=== PATIENT | female | born 1940 | race Caucasian/White ===

== ENCOUNTER 2018-03-17 17:18 | Emergency (ER) | payer OTHER ==
[2018-03-17 18:41] LABS: Absolute Lymphocytes (CBC) 2.1 K/uL (0.7-4.9); Absolute Monocytes 0.9 K/uL (0.1-1.3); Basophils % 0.8 % (0-1.3); Eosinophils % 2.4 % (0-4.4); Hematocrit 36.9 % (36.0-45.0); Lymphocytes % 20.7 % (15.3-44.8); MCH 29.3 pg (27.0-35.0); MCV 83.8 fL (80-100); MPV 8.4 fL (7.6-11.3); Monocytes % 8.3 % (3.3-12.3)
[2018-03-17] MEDS ORDERED: NA CHLORIDE 0.9% 1,000 ML ONE (18:45)
[2018-03-17 18:59] LABS: Albumin 4.2 g/dL (3.4-5.0); Bilirubin Direct 0.2 mg/dL (0-0.2); Bilirubin Total 0.4 mg/dL (0.2-1.0); Potassium 3.1 mmol/L (3.5-5.1); Protein, Total 7.7 g/dL (6.4-8.2)
--- NOTE | 2018-03-17 19:27 | RAD REPORT ---
EXAM DESCRIPTION: CTAbdomen Pelvis W Contrast - 03/17/2018 7:20 pm CLINICAL HISTORY: Abdominal pain. diarrhea COMPARISON: No comparisons TECHNIQUE: Biphasic CT imaging of the abdomen and pelvis was performed with 100 ml non-ionic IV cont rast. All CT scans are performed using dose optimization technique as appropriate and may include automated exposure control or mA/KV adjustment according to patient size. FINDINGS: The lung bases are clear. Diffuse fatty liver is present. No focal liver lesion intrahepatic biliary dilatation. The spleen, pa ncreas, adrenal glands and kidneys show no acute process. Small benign renal cysts are present. No bowel obstruction, free air, free fluid or abscess. Focal ventral hernia is present containing sma ll bowel loops and fat without evidence of obstruction. Prominent sigmoid diverticulosis coli is pres ent without diverticulitis. Evidence of previous right hemicolectomy with anastomotic site in the mid transverse colon region. No evidence of significant lymphadenopathy. No suspicious bony findings. IMPRESSION: No acute intra-abdominal or pelvic finding. Fatty liver. Moderate focal ventral hernia without obstruction or incarceration.
[2018-03-17] MEDS ORDERED: POTASSIUM 25 MEQ EFFERV TAB ONE (20:27)
[2018-03-17] MEDS ORDERED: NA CHLORIDE 0.9% 500 ML ONE (20:27)
--- NOTE | 2018-03-17 21:21 | EDPHYS ---
Physician Documentation [facility] Name: Yessenia Ray Age: 77 yrs Sex: Female : 1940 Arrival Date: 03/17/2018 Time: 17:19 Bed 13 Private MD: Mik [facility] ED Physician Jeffery Crow HPI: 03/17 18:28 This 77 yrs old Female presents to ER via Ambulatory with complaints of snw diarrhea. 18:28 The patient presents to the emergency department with diarrhea, 20+ episodes today, pt snw states she took two doses of immodium and diarrhea has slowed to about every twenty minutes. Denies fever, denies N/V, denies abd pain. Onset: The symptoms/episode began/occurred 2 month(s) ago, and became worse today, and became persistent. Possible causes: unknown. Associated signs and symptoms: Pertinent positives: diarrhea. Severity of symptoms: At their worst the symptoms were severe. The patient has experienced a previous episode. The patient has not recently seen a physician, sees Dr. Alejandro and Dr. Houser. 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 Historical: - Allergies: 17:35 Codeine; aj1 - Home Meds: 17:35 Norvasc Oral [Active]; Zocor Oral [Active]; Clonidine Oral [Active]; Micardis Oral aj1 [Active]; Hydrochlorothiazide Oral [Active]; - PMHx: 17:35 Hypertension; Hyperlipidemia; colon cancer- currently in remission; peritonitis; aj1 uterine cancer; - PSHx: 17:35 colectomy; Hysterectomy; aj1 - Immunization history:: Flu vaccine is up to date. - Social history:: Smoking status: Patient/guardian denies using tobacco. - Ebola Screening: : Patient denies travel to an Ebola-affected area in the 21 days before illness onset. ROS: 18:25 Constitutional: Negative for fever, chills, and weight loss, Eyes: Negative for injury, snw pain, redness, and discharge, ENT: Negative for injury, pain, and discharge, Neck: Negative for injury, pain, and swelling, Cardiovascular: Negative for chest pain, palpitations, and edema, Respiratory: Negative for shortness of breath, cough, wheezing, and pleuritic chest pain, Back: Negative for injury and pain, : Negative for injury, bleeding, discharge, and swelling, MS/Extremity: Negative for injury and deformity, Skin: Negative for injury, rash, and discoloration, Neuro: Negative for headache, weakness, numbness, tingling, and seizure. 18:25 Abdomen/GI: Positive for diarrhea, Negative for abdominal pain, nausea and vomiting. Exam: 18:25 Constitutional: This is a well developed, well nourished patient who is awake, alert, snw and in no acute distress. Head/Face: Normocephalic, atraumatic. Eyes: Pupils equal round and reactive to light, extra-ocular motions intact. Lids and lashes normal. Conjunctiva and sclera are non-icteric and not injected. Cornea within normal limits. Periorbital areas with no swelling, redness, or edema. ENT: Nares patent. No nasal discharge, no septal abnormalities noted. Tympanic membranes are normal and external auditory canals are clear. Oropharynx with no redness, swelling, or masses, exudates, or evidence of obstruction, uvula midline. Mucous membranes moist. Neck: Trachea midline, no thyromegaly or masses palpated, and no cervical lymphadenopathy. Supple, full range of motion without nuchal rigidity, or vertebral point tenderness. No Meningismus. Chest/axilla: Normal chest wall appearance and motion. Nontender with no deformity. No lesions are appreciated. Cardiovascular: Regular rate and rhythm with a normal S1 and S2. No gallops, murmurs, or rubs. Normal PMI, no JVD. No pulse deficits. Respiratory: Lungs have equal breath sounds bilaterally, clear to auscultation and percussion. No rales, rhonchi or wheezes noted. No increased work of breathing, no retractions or nasal flaring. Back: No spinal tenderness. No costovertebral tenderness. Full range of motion. Skin: Warm, dry with normal turgor. Normal color with no rashes, no lesions, and no evidence of cellulitis. MS/ Extremity: Pulses equal, no cyanosis. Neurovascular intact. Full, normal range of motion. Neuro: Awake and alert, GCS 15, oriented to person, place, time, and situation. Cranial nerves II-XII grossly intact. Motor strength 5/5 in all extremities. Sensory grossly intact. Cerebellar exam normal. Normal gait. Psych: Awake, alert, with orientation to person, place and time. Behavior, mood, and affect are within normal limits. 18:25 Abdomen/GI: Inspection: distension, Bowel sounds: normal, Palpation: abdomen is soft and non-tender, in all quadrants. Vital Signs: 17:35 BP 179 / 75; Pulse 70; Resp 18; Temp 97.5; Pulse Ox 100% on R/A; Weight 65.32 kg (R); aj1 Height 5 ft. 2 in. (157.48 cm); Pain 0/10; 18:50 BP 174 / 76; Pulse 74; Resp 18; Pulse Ox 100% on R/A; hj 19:15 BP 175 / 67; Pulse 71; Resp 18; Temp 98.3(O); Pulse Ox 100% on R/A; cc3 20:55 BP 164 / 83; Pulse 72; Resp 19 S; Pulse Ox 100% on R/A; cc3 17:35 Body Mass Index 26.34 (65.32 kg, 157.48 cm) aj1 MDM: 18:06 Patient medically screened. [facility] [place] 21:21 Data reviewed: vital signs, nurses notes. Data interpreted: Pulse oximetry: on room air snw is 100 %. Interpretation: normal. Counseling: I had a detailed discussion with the patient and/or guardian regarding: the historical points, exam findings, and any diagnostic results supporting the discharge/admit diagnosis, the presence of at least one elevated blood pressure reading (>120/80) during this emergency department visit, lab results, radiology results, the need for outpatient follow up, Pt has appt with Dr. Escudero on Mar 25, 2018. Response to treatment: the patient's symptoms have markedly improved after treatment, No diarrhea in ED. 03/17 18:06 Order name: Basic Metabolic Panel [facility] 03/17 18:06 Order name: CBC with Diff; Complete Time: 19:07 snw 03/17 18:06 Order name: Creatinine for Radiology; Complete Time: 19:07 snw 03/17 18:06 Order name: Hepatic Function w 03/17 18:06 Order name: Lipase snw 03/17 18:06 Order name: TS; Complete Time: 20:05 snw 03/17 18:07 Order name: Basic Metabolic Panel; Complete Time: 19:07 EDMN 03/17 18:07 Order name: Liver (Hepatic) Function; Complete Time: 19:07 EDMS 03/17 18:07 Order name: Lipase; Complete Time: 19:07 EDMS 03/17 18:33 Order name: CT Abd/Pelvis - W/Contrast; Complete Time: 19:30 snw 03/17 18:06 Order name: IV Saline Lock; Complete Time: 18:36 snw 03/17 18:06 Order name: Labs collected and sent; Complete Time: 18:36 snw Administered Medications: 18:33 Drug: NS 0.9% 1000 ml Route: IV; Rate: 125 ml/hr; Site: right antecubital; hj 21:20 Follow up: Response: No adverse reaction; patient discharged home cc3 20:30 Drug: NS 0.9% 500 ml Route: IV; Rate: bolus; Site: right antecubital; cc3 21:05 Follow up: Response: No adverse reaction; IV Status: Completed infusion; IV Intake: cc3 500ml 20:30 Drug: Potassium Effervescent Tablet 50 mEq Route: PO; cc3 21:00 Follow up: Response: No adverse reaction cc3 Disposition: 03/18 08:29 Co-signature as Attending Physician, Jeffery Crow MD I agree with the assessment and greg plan of care. Disposition: 03/17/18 21:20 Discharged to Home. Impression: Diarrhea, unspecified, Dehydration. - Condition is Stable. - Discharge Instructions: Food Choices to Help Relieve Diarrhea, Adult, Dehydration, Elderly, Diarrhea, Adult, Hypokalemia, Rehydration, Elderly. - Medication Reconciliation Form, Thank You Letter, Antibiotic Education, Prescription Opioid Use form. - Follow up: Aubrey Houser, DO; When: 2 - 3 days; Reason: Recheck today's complaints, Continuance of care, Re-evaluation by your physician. Follow up: Emergency Department; When: As needed; Reason: Worsening of condition. Signatures: Dispatcher [employer] [facility] Cris Ding RN RN aj1 Anderson, Corey, MD MD cha Therrien, Shelly, DEPOSITION REPORTER-C DEPOSITION REPORTER-Csnw Agus Arriaga RN RN Rita Friedman cc3 Corrections: (The following items were deleted from the chart) 03/17 18:08 18:07 Occult Blood+PA.LAB.BRZ ordered. [facility] EDMN 21:50 21:20 03/17/2018 21:20 Discharged to Home. Impression: Diarrhea, unspecified; cc3 Dehydration. Condition is Stable. Forms are Medication Reconciliation Form, Thank You Letter, Antibiotic Education, Prescription Opioid Use. Follow up: Aubrey Houser; When: 2 - 3 days; Reason: Recheck today's complaints, Continuance of care, Re-evaluation by your physician. Follow up: Emergency Department; When: As needed; Reason: Worsening of condition. snw
--- NOTE | 2018-03-17 21:21 | ER ---
Nurse's Notes [facility] Name: Yessenia Ray Age: 77 yrs Sex: Female : 1940 Arrival Date: 03/17/2018 Time: 17:19 Bed 13 Private MD: Aubrey Houser Diagnosis: Diarrhea, unspecified;Dehydration Presentation: 03/17 17:31 Presenting complaint: Patient states: She has been having diarrhea off and on for the aj1 past 8 weeks. States that her diarrhea has been worse today. Denies pain, Denies fever. Transition of care: patient was not received from another setting of care. Onset of symptoms was January 2018. Risk Assessment: Do you want to hurt yourself or someone else? Patient reports no desire to harm self or others. Initial Sepsis Screen: Does the patient meet any 2 criteria? No. Patient's initial sepsis screen is negative. Does the patient have a suspected source of infection? No. Patient's initial sepsis screen is negative. Care prior to arrival: None. 17:31 Method Of Arrival: Ambulatory aj1 17:31 Acuity: WONG 3 aj1 Triage Assessment: 17:35 General: Appears in no apparent distress. comfortable, Behavior is calm, cooperative, aj1 appropriate for age. Pain: Denies pain. Neuro: Level of Consciousness is awake, alert, obeys commands. Cardiovascular: Patient's skin is warm and dry. 17:35 Respiratory: Airway is patent Respiratory effort is even, unlabored, Respiratory aj1 pattern is regular, symmetrical. Historical: - Allergies: 17:35 Codeine; aj1 - Home Meds: 17:35 Norvasc Oral [Active]; Zocor Oral [Active]; Clonidine Oral [Active]; Micardis Oral aj1 [Active]; Hydrochlorothiazide Oral [Active]; - PMHx: 17:35 Hypertension; Hyperlipidemia; colon cancer- currently in remission; peritonitis; aj1 uterine cancer; - PSHx: 17:35 colectomy; Hysterectomy; aj1 - Immunization history:: Flu vaccine is up to date. - Social history:: Smoking status: Patient/guardian denies using tobacco. - Ebola Screening: : Patient denies travel to an Ebola-affected area in the 21 days before illness onset. Screenin:40 Abuse screen: Denies threats or abuse. Denies injuries from another. Nutritional hj screening: No deficits noted. Tuberculosis screening: No symptoms or risk factors identified. Fall Risk None identified. Assessment: 17:40 General: Appears in no apparent distress. uncomfortable, Behavior is calm, cooperative, hj appropriate for age. Pain: Denies pain. Neuro: Level of Consciousness is awake, alert, obeys commands, Oriented to person, place, time, situation, Appropriate for age Reports dizziness. Cardiovascular: Capillary refill < 3 seconds Patient's skin is warm and dry. Respiratory: Airway is patent Respiratory effort is even, unlabored, Respiratory pattern is regular, symmetrical. GI: Reports diarrhea. : No signs and/or symptoms were reported regarding the genitourinary system. EENT: No signs and/or symptoms were reported regarding the EENT system. Derm: No signs and/or symptoms reported regarding the dermatologic system. Musculoskeletal: No signs and/or symptoms reported regarding the musculoskeletal system. 19:15 Reassessment: Patient appears in no apparent distress at this time. Patient and/or cc3 family updated on plan of care and expected duration. Pain level reassessed. Patient is alert, oriented x 3, equal unlabored respirations, skin warm/dry/pink. Received from SONAM Goldsmith as a case of dizziness and diarrhea for 8 weeks. 20:30 Reassessment: Patient appears in no apparent distress at this time. Patient and/or cc3 family updated on plan of care and expected duration. Pain level reassessed. Patient is alert, oriented x 3, equal unlabored respirations, skin warm/dry/pink. 21:35 Reassessment: Patient appears in no apparent distress at this time. Patient and/or cc3 family updated on plan of care and expected duration. Pain level reassessed. Patient is alert, oriented x 3, equal unlabored respirations, skin warm/dry/pink. KATHRYN Hudson discharged the patient home, no prescription given. Patient was not able to provide stool sample, KATHRYN Hudson informed. IV cannula removed and patient left ER vitally stable and ambulatory with her son. Vital Signs: 17:35 BP 179 / 75; Pulse 70; Resp 18; Temp 97.5; Pulse Ox 100% on R/A; Weight 65.32 kg (R); aj1 Height 5 ft. 2 in. (157.48 cm); Pain 0/10; 18:50 BP 174 / 76; Pulse 74; Resp 18; Pulse Ox 100% on R/A; hj 19:15 BP 175 / 67; Pulse 71; Resp 18; Temp 98.3(O); Pulse Ox 100% on R/A; cc3 20:55 BP 164 / 83; Pulse 72; Resp 19 S; Pulse Ox 100% on R/A; cc3 17:35 Body Mass Index 26.34 (65.32 kg, 157.48 cm) aj1 ED Course: 17:19 Patient arrived in ED. mr 17:23 Aubrey Houser DO is Private Physician. mr 17:32 Triage completed. aj1 17:35 Arm band placed on Patient placed in an exam room. aj1 17:40 Agus Arriaga, SONAM is Primary Nurse. hj 17:40 Patient has correct armband on for positive identification. Placed in gown. Bed in low hj position. Call light in reach. Side rails up X 1. 18:05 Becca Cisneros FNP-C is PHCP. snw 18:05 Jeffery Crow MD is Attending Physician. snw 18:20 Initial lab(s) drawn, by mo, sent to lab. Inserted saline lock: 18 gauge in right hj antecubital area, using aseptic technique. Blood collected. 18:44 Radiology exam delayed due to lab results not completed at this time. (BUN/Creatinine). kc3 19:17 CT completed. Patient moved to CT via wheelchair. Patient moved back from CT. cw1 19:20 CT Abd/Pelvis - W/Contrast In Process Unspecified. EDMS 21:20 Aubrey Houser DO is Referral Physician. snw 21:45 No provider procedures requiring assistance completed. IV discontinued, intact, cc3 bleeding controlled, No redness/swelling at site. Pressure dressing applied. Administered Medications: 18:33 Drug: NS 0.9% 1000 ml Route: IV; Rate: 125 ml/hr; Site: right antecubital; hj 21:20 Follow up: Response: No adverse reaction; patient discharged home cc3 20:30 Drug: NS 0.9% 500 ml Route: IV; Rate: bolus; Site: right antecubital; cc3 21:05 Follow up: Response: No adverse reaction; IV Status: Completed infusion; IV Intake: cc3 500ml 20:30 Drug: Potassium Effervescent Tablet 50 mEq Route: PO; cc3 21:00 Follow up: Response: No adverse reaction cc3 Intake: 21:05 IV: 500ml; Total: 500ml. cc3 Outcome: 21:20 Discharge ordered by . andrea :45 Discharged to home ambulatory, with family. cc3 21:45 Condition: stable 21:45 Discharge instructions given to patient, family, Instructed on discharge instructions, follow up and referral plans. Demonstrated understanding of instructions, follow-up care. 21:50 Patient left the ED. cc3 Signatures: Dispatcher [employer] EDCris Smith, RN RN aj1 Becca Cisneros, HOUSING OFFICER-C HOUSING OFFICER-Csnw Waleska Weinstein Elvira, Constance cw1 Agus Arriaga, RN RN Jocy Hoff kc3 Rita Friedman cc3
== END 2018-03-17 21:50 | disposition home or self-care (01) ==
LOC: ER 17:18
DX: E86.0 Dehydration (principal); I10 Essential (primary) hypertension; E78.5 Hyperlipidemia, unspecified; Z85.038 Personal history of other malignant neoplasm of large intestine; Z85.42 Personal history of malignant neoplasm of other parts of uterus; Z88.5 Allergy status to narcotic agent
CPT/HCPCS: 36415; 74177; 80048; 80076; 83690; 85025; 86850; 86900; 86901; 96360; 99284; J7030; Q9967

== ENCOUNTER 2018-04-22 14:05 | Emergency (ER) | payer OTHER ==
[2018-04-22 16:11] LABS: Urine Blood TRACE (NEG); Urine Glucose NEGATIVE (NEG); Urine Protein NEGATIVE (NEG); Urine pH 6.5 (5.0-7.0)
[2018-04-22 16:21] LABS: Urine Bacteria 20-50 /HPF (<20); Urine Culture Reflex Order NOT NEEDED; Urine RBC <5 /HPF (NONE SEEN)
[2018-04-22 17:40] LABS: Urine Bacteria <20 /HPF (<20); Urine Culture Reflex Order NOT NEEDED; Urine RBC <5 /HPF (NONE SEEN)
--- NOTE | 2018-04-22 18:12 | ER ---
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 Transition of care: patient was not received from another setting of care. Onset of symptoms was April 22, 2018. Risk Assessment: Do you want to hurt yourself or someone else? Patient reports no desire to harm self or others. Initial Sepsis Screen: Does the patient meet any 2 criteria? No. Patient's initial sepsis screen is negative. Does the patient have a suspected source of infection? No. Patient's initial sepsis screen is negative. Care prior to arrival: None. 14:38 Method Of Arrival: Ambulatory 14:38 Acuity: WONG 3 hj Triage Assessment: 14:40 General: Appears in no apparent distress. uncomfortable, Behavior is calm, cooperative, hj appropriate for age. Pain: Complains of pain in pelvis. Historical: - Allergies: 14:40 Codeine; hj - Home Meds: 14:40 Clonidine Oral [Active]; Hydrochlorothiazide Oral [Active]; Micardis Oral [Active]; hj Norvasc Oral [Active]; Zocor Oral [Active]; - PMHx: 14:40 colon cancer- currently in remission; Hyperlipidemia; Hypertension; peritonitis; hj uterine cancer; - PSHx: 14:40 colectomy; Hysterectomy; hj - Immunization history:: Adult Immunizations up to date. - Social history:: Smoking status: Patient/guardian denies using tobacco, Patient/guardian denies using alcohol. - Ebola Screening: : Patient negative for fever greater than or equal to 101.5 degrees Fahrenheit, and additional compatible Ebola Virus Disease symptoms Patient denies exposure to infectious person Patient denies travel to an Ebola-affected area in the 21 days before illness onset. Screenin:40 Abuse screen: Denies threats or abuse. Denies injuries from another. Nutritional hj screening: No deficits noted. Tuberculosis screening: No symptoms or risk factors identified. Fall Risk None identified. Assessment: 16:05 General: Appears in no apparent distress. comfortable, Behavior is calm, cooperative, aj1 appropriate for age. Pain: Complains of pain in suprapubic area. Neuro: Level of Consciousness is awake, alert, obeys commands. Cardiovascular: Patient's skin is warm and dry. Respiratory: Airway is patent Respiratory effort is even, unlabored, Respiratory pattern is regular, symmetrical. GI: No signs and/or symptoms were reported involving the gastrointestinal system. : Reports burning with urination. EENT: No signs and/or symptoms were reported regarding the EENT system. Derm: No signs and/or symptoms reported regarding the dermatologic system. Musculoskeletal: No signs and/or symptoms reported regarding the musculoskeletal system. 17:03 Reassessment: Patient appears in no apparent distress at this time. No changes from aj1 previously documented assessment. Patient and/or family updated on plan of care and expected duration. Pain level reassessed. Patient is alert, oriented x 3, equal unlabored respirations, skin warm/dry/pink. 18:10 Reassessment: Patient appears in no apparent distress at this time. No changes from aj1 previously documented assessment. Patient and/or family updated on plan of care and expected duration. Pain level reassessed. Patient is alert, oriented x 3, equal unlabored respirations, skin warm/dry/pink. Vital Signs: 14:40 BP 150 / 76; Pulse 80; Resp 18; Temp 97.8(TE); Pulse Ox 100% on R/A; Weight 61.23 kg; hj Height 5 ft. 2 in. (157.48 cm); Pain 10/10; 14:40 Body Mass Index 24.69 (61.23 kg, 157.48 cm) ED Course: 14:07 Patient arrived in ED. mr 14:08 Aubrey Houser DO is Private Physician. mr 14:39 Triage completed. hj 14:40 Arm band placed on right wrist. hj 14:40 Patient has correct armband on for positive identification. Bed in low position. Call light in reach. Side rails up X 1. Adult w/ patient. 15:40 Dusty Alamo PA is [facility]. jr8 15:40 Christian Ellsworth MD is Attending Physician. jr8 16:04 Timur, Cris, RN is Primary Nurse. aj1 16:05 No provider procedures requiring assistance completed. aj1 16:50 Straight cath inserted, using sterile technique, Returned clear yellow urine. Patient aj1 tolerated poorly. 18:11 Naveed Roberts MD is Referral Physician. jr8 18:34 Patient did not have IV access during this emergency room visit. aj1 Administered Medications: No medications were administered Outcome: 18:11 Discharge ordered by . jr8 18:34 Discharged to home ambulatory. aj1 18:34 Condition: good 18:34 Discharge instructions given to patient, Instructed on discharge instructions, follow up and referral plans. no drinking with medication, no driving heavy equipment, medication usage, Demonstrated understanding of instructions, follow-up care, medications. 18:36 Patient left the ED. aj1 Signatures: Cris Ding, RN RN aj1 Weinstein, Waleska mr Cally, Dusty, PA PA jr8 Agus Arriaga RN RN hj
--- NOTE | 2018-04-22 18:12 | EDPHYS ---
Physician Documentation [facility] Name: Yessenia Ray Age: 77 yrs Sex: Female : 1940 Arrival Date: 04/22/2018 Time: 14:07 Bed 24 Private MD: Mik [facility] ED Physician Christian Ellsworth HPI: 04/22 16:30 This 77 yrs old Female presents to ER via Ambulatory with complaints of jr8 Urinary Problem. 16:30 The patient presents with urinary symptoms, frequency, hesitancy, urgency. Onset: The jr8 symptoms/episode began/occurred gradually, 2 day(s) ago. Modifying factors: The symptoms are alleviated by nothing, the symptoms are aggravated by urinating. Associated signs and symptoms: Pertinent positives: cramping. Severity of symptoms: At their worst the symptoms were mild, in the emergency department the symptoms are unchanged. The patient has experienced a previous episode. The patient has not recently seen a physician. Historical: - Allergies: 14:40 Codeine; hj - Home Meds: 14:40 Clonidine Oral [Active]; Hydrochlorothiazide Oral [Active]; Micardis Oral [Active]; hj Norvasc Oral [Active]; Zocor Oral [Active]; - PMHx: 14:40 colon cancer- currently in remission; Hyperlipidemia; Hypertension; peritonitis; hj uterine cancer; - PSHx: 14:40 colectomy; Hysterectomy; hj - Immunization history:: Adult Immunizations up to date. - Social history:: Smoking status: Patient/guardian denies using tobacco, Patient/guardian denies using alcohol. - Ebola Screening: : Patient negative for fever greater than or equal to 101.5 degrees Fahrenheit, and additional compatible Ebola Virus Disease symptoms Patient denies exposure to infectious person Patient denies travel to an Ebola-affected area in the 21 days before illness onset. ROS: 16:30 Eyes: Negative for injury, pain, redness, and discharge, ENT: Negative for injury, jr8 pain, and discharge, Neck: Negative for injury, pain, and swelling, Cardiovascular: Negative for chest pain, palpitations, and edema, Respiratory: Negative for shortness of breath, cough, wheezing, and pleuritic chest pain, Back: Negative for injury and pain, MS/Extremity: Negative for injury and deformity, Skin: Negative for injury, rash, and discoloration, Neuro: Negative for headache, weakness, numbness, tingling, and seizure. 16:30 Abdomen/GI: Positive for abdominal pain, Negative for nausea, vomiting, and diarrhea, abdominal distension, anorexia, dysphagia, hematemesis, black/tarry stool, rectal pain, rectal bleeding, bowel incontinence, flatulence. 16:30 : Positive for urinary symptoms. Exam: 16:30 Eyes: Pupils equal round and reactive to light, extra-ocular motions intact. Lids and jr8 lashes normal. Conjunctiva and sclera are non-icteric and not injected. Cornea within normal limits. Periorbital areas with no swelling, redness, or edema. ENT: Nares patent. No nasal discharge, no septal abnormalities noted. Tympanic membranes are normal and external auditory canals are clear. Oropharynx with no redness, swelling, or masses, exudates, or evidence of obstruction, uvula midline. Mucous membranes moist. Neck: Trachea midline, no thyromegaly or masses palpated, and no cervical lymphadenopathy. Supple, full range of motion without nuchal rigidity, or vertebral point tenderness. No Meningismus. Cardiovascular: Regular rate and rhythm with a normal S1 and S2. No gallops, murmurs, or rubs. Normal PMI, no JVD. No pulse deficits. Respiratory: Lungs have equal breath sounds bilaterally, clear to auscultation and percussion. No rales, rhonchi or wheezes noted. No increased work of breathing, no retractions or nasal flaring. Back: No spinal tenderness. No costovertebral tenderness. Full range of motion. Skin: Warm, dry with normal turgor. Normal color with no rashes, no lesions, and no evidence of cellulitis. MS/ Extremity: Pulses equal, no cyanosis. Neurovascular intact. Full, normal range of motion. Neuro: Awake and alert, GCS 15, oriented to person, place, time, and situation. Cranial nerves II-XII grossly intact. Motor strength 5/5 in all extremities. Sensory grossly intact. Cerebellar exam normal. Normal gait. 16:30 Abdomen/GI: Inspection: abdomen appears normal, Bowel sounds: active, all quadrants, Palpation: soft, in all quadrants, mild abdominal tenderness, in the suprapubic area, mass, is not appreciated, rebound tenderness, is not appreciated, voluntary guarding, is not appreciated, involuntary guarding, is not appreciated, no appreciated organomegaly, Indicators: McBurney's point is not tender, Cobos's sign is negative, Rovsing's sign is negative, Liver: tenderness, is not appreciated. Vital Signs: 14:40 BP 150 / 76; Pulse 80; Resp 18; Temp 97.8(TE); Pulse Ox 100% on R/A; Weight 61.23 kg; hj Height 5 ft. 2 in. (157.48 cm); Pain 10/10; 14:40 Body Mass Index 24.69 (61.23 kg, 157.48 cm) hj MDM: 15:40 Patient medically screened. [facility] 18:04 Data reviewed: vital signs, nurses notes, lab test result(s), and as a result, I will jr8 discharge patient. Data interpreted: Pulse oximetry: on room air is 100 %. Interpretation: normal. Counseling: I had a detailed discussion with the patient and/or guardian regarding: the historical points, exam findings, and any diagnostic results supporting the discharge/admit diagnosis, lab results, the need for outpatient follow up, a urologist, to return to the emergency department if symptoms worsen or persist or if there are any questions or concerns that arise at home. Physician consultation: Naveed Roberts MD was called at 18:07, was contacted at 18:07, regarding consult, patient's condition, Recommends urodel and antibiotics . 04/22 14:43 Order name: Urine Microscopic Only; Complete Time: 16:25 04/22 16:08 Order name: Urine Dipstick--Ancillary (enter results) 04/22 14:43 Order name: Urine Dipstick-Ancillary (obtain specimen); Complete Time: 16:05 04/22 16:52 Order name: Urine Microscopic Only; Complete Time: 17:57 04/22 16:52 Order name: Urine Culture bd Administered Medications: No medications were administered Disposition: 04/23 15:50 Co-signature as Attending Physician, Christian Ellsworth MD I agree with the assessment and kdr plan of care. Disposition: 04/22/18 18:11 Discharged to Home. Impression: Dysuria. - Condition is Stable. - Discharge Instructions: Dysuria, Urodynamic Testing. - Prescriptions for phenazopyridine 100 mg Oral tablet - take 1 tablet by ORAL route 4 times per day as needed; 8 tablet. Valium 2 mg Oral Tablet - take 1 tablet by ORAL route every 8 hours As needed; 20 tablet. Macrobid 100 mg Oral Capsule - take 1 capsule by ORAL route every 12 hours for 7 days; 14 capsule. - Medication Reconciliation Form, Thank You Letter, Antibiotic Education, Prescription Opioid Use form. - Follow up: Naveed Roberts MD; When: 2 - 3 days; Reason: Recheck today's complaints, Continuance of care, Re-evaluation by your physician. - Problem is new. - Symptoms have improved. Signatures: Dispatcher [employer] EDMS Cris Ding RN RN aj1 Christian Ellsworth MD MD kdr Dusty Alamo PA PA jr8 Agus Arriaga RN RN hj Corrections: (The following items were deleted from the chart) 04/22 18:36 18:11 04/22/2018 18:11 Discharged to Home. Impression: Dysuria. Condition is Stable. aj1 Forms are Medication Reconciliation Form, Thank You Letter, Antibiotic Education, Prescription Opioid Use. Follow up: Naveed Roberts; When: 2 - 3 days; Reason: Recheck today's complaints, Continuance of care, Re-evaluation by your physician. Problem is new. Symptoms have improved. jr8
== END 2018-04-22 18:36 | disposition home or self-care (01) ==
LOC: ER 14:05
DX: R30.0 Dysuria (principal); I10 Essential (primary) hypertension; E78.5 Hyperlipidemia, unspecified; Z88.5 Allergy status to narcotic agent; Z85.42 Personal history of malignant neoplasm of other parts of uterus; Z85.038 Personal history of other malignant neoplasm of large intestine
CPT/HCPCS: 51702; 81003; 81015; 87086; 87088; 99281

== ENCOUNTER 2018-07-31 00:55 | Emergency (ER) | payer OTHER ==
--- OUTSIDE RECORDS SUMMARY | 2018-07-31 00:57 | XMS REPORT ---
:1940 Author Organization eClinicalWorks Care Team Providers Name Role Phone Houser, [facility] Provider Role Unavailable Allergies, Adverse Reactions, Alerts Substance Reaction Event Type Clotrimazole Diarrhea Drug Allergy Cipro Rash Drug Allergy Cephalexin Diarrhea Drug Allergy Problems Problem Type Condition Code Onset Dates Condition Status Assessment Perforation of right tympanic H72.91 Active membrane Assessment Right ear pain H92.01 Active Assessment Perineal abscess L02.215 Active Problem Colitis K52.9 Active Problem Persistent insomnia G47.00 Active Problem Hypokalemia E87.6 Active Problem Dyslipidemia E78.5 Active Problem Benign essential HTN I10 Active Problem White coat syndrome with high blood R03.0 Active pressure but without hypertension Problem Hyperlipidemia E78.5 Active Medications Medication Code Code Instructions Start End Status Dosage System Date Date Micardis [facility] 09727513060 80 MG Orally June Active 1 tablet Once a day 2018 Simvastatin [facility] 47981278002 20 MG Orally Active 1 tablet Once a day in the evening Hydrochlorothiazide [facility] 97614202659 12.5 MG Orally June Active 1 tablet Once a day , in the 2018 morning Clonidine HCl [facility] 75208536616 0.1 MG Orally Active 1 tablet Once a day at bedtime Norvasc [facility] 24698603071 5 MG Orally Active 1 tablet Once a day Aspir-81 [facility] 99619743139 81 MG Orally Active 1 tablet Once a day Vitamin C [facility] 61836974934 500 MG Orally Active not defined Ventolin HFA [facility] 22655115225 108 (90 Base) Active 2 puffs MCG/ACT as needed Inhalation every 6 hrs Unisom [facility] 02045603800 25 MG Orally Active 1 tablet Once a day at bedtime as needed Results No Known Results Summary Purpose eClinicalWorks Submission
[2018-07-31 01:38] LABS: Absolute Lymphocytes (CBC) 0.4 K/uL (0.7-4.9); Absolute Monocytes 0.5 K/uL (0.1-1.3); Absolute Neutrophil 10.5 K/uL (1.8-8.0); Basophils % 0.3 % (0-1.3); Eosinophils % 0.6 % (0-4.4); Hematocrit 32.6 % (36.0-45.0); Lymphocytes % 3.6 % (15.3-44.8); MPV 7.6 fL (7.6-11.3); Monocytes % 4.7 % (3.3-12.3); RBC Red Blood Cell Count 3.95 M/uL (3.86-4.86)
[2018-07-31 01:41] LABS: Protime INR 1.07
[2018-07-31 02:12] LABS: ALT/SGPT 23 U/L (12-78); AST/SGOT 23 U/L (15-37); Albumin 3.8 g/dL (3.4-5.0); Alkaline Phosphatase 44 U/L (45-117); BUN Blood Urea Nitrogen 22 mg/dL (7-18); Bicarbonate 24 mmol/L (21-32); Bilirubin Direct 0.2 mg/dL (0-0.2); Bilirubin Total 0.7 mg/dL (0.2-1.0); Glucose Level 114 mg/dL (74-106); Magnesium 1.9 mg/dL (1.8-2.4); NT PRO-BNP 152 pg/mL (<450); Protein, Total 6.9 g/dL (6.4-8.2); Sodium Level 130 mmol/L (136-145); Troponin (Emerg Dept Use Only) < 0.02 ng/mL (0.0-0.045)
[2018-07-31 02:14] LABS: Potassium 2.8 mmol/L (3.5-5.1)
[2018-07-31] MEDS ORDERED: NA CHLORIDE 0.9% 500 ML ONE (02:23)
--- NOTE | 2018-07-31 02:31 | EDPHYS ---
Physician Documentation [facility] Name: Yessenia Ray Age: 78 yrs Sex: Female : 1940 Arrival Date: 07/31/2018 Time: 01:00 Bed 7 Private MD: ED Physician Jeffery Crow HPI: 07/31 01:08 This 78 yrs old Female presents to ER via Unassigned with complaints of weak kb and shaky. 01:08 The patient presents with generalized weakness. Onset: The symptoms/episode kb began/occurred just prior to arrival. Context: occurred at home, occurred while the patient was lying down, just prior to the episode the patient experienced no apparent symptoms. Modifying factors: The symptoms are alleviated by nothing, the symptoms are aggravated by nothing. Associated signs and symptoms: Pertinent positives: chills. Severity of symptoms: At their worst the symptoms were mild in the emergency department the symptoms are unchanged. Patient's baseline: Neuro: alert and fully oriented, Motor: no deficits, Ambulation: walks without assistance, Speech: normal. The patient has not experienced similar symptoms in the past. The patient has not recently seen a physician. Pt reports she had cold chills before going to bed. 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 . Historical: - Allergies: 01:14 Codeine; aa1 - Home Meds: 01:14 Clonidine Oral [Active]; Hydrochlorothiazide Oral [Active]; Micardis Oral [Active]; aa1 Norvasc Oral [Active]; - PMHx: 01:14 colon cancer- currently in remission; Hyperlipidemia; Hypertension; peritonitis; aa1 uterine cancer; - PSHx: 01:14 colectomy; Hysterectomy; Appendectomy; aa1 - Immunization history:: Flu vaccine is up to date. - Social history:: Smoking status: Patient/guardian denies using tobacco. - Ebola Screening: : No symptoms or risks identified at this time. ROS: 01:08 ENT: Negative for injury, pain, and discharge, Neck: Negative for injury, pain, and kb swelling, Cardiovascular: Negative for chest pain, palpitations, and edema, Respiratory: Negative for shortness of breath, cough, wheezing, and pleuritic chest pain, Abdomen/GI: Negative for abdominal pain, nausea, vomiting, diarrhea, and constipation, Back: Negative for injury and pain, : Negative for injury, bleeding, discharge, and swelling, MS/Extremity: Negative for injury and deformity, Skin: Negative for injury, rash, and discoloration. 01:08 Constitutional: Positive for chills, Negative for body aches, fatigue, fever, malaise, poor PO intake, weight loss. 01:08 Neuro: Positive for weakness. Exam: 01:08 Constitutional: This is a well developed, well nourished patient who is awake, alert, kb and in no acute distress. Head/Face: Normocephalic, atraumatic. ENT: Nares patent. No nasal discharge, no septal abnormalities noted. Tympanic membranes are normal and external auditory canals are clear. Oropharynx with no redness, swelling, or masses, exudates, or evidence of obstruction, uvula midline. Mucous membranes moist. Neck: Trachea midline, no thyromegaly or masses palpated, and no cervical lymphadenopathy. Supple, full range of motion without nuchal rigidity, or vertebral point tenderness. No Meningismus. Chest/axilla: Normal chest wall appearance and motion. Nontender with no deformity. No lesions are appreciated. Cardiovascular: Regular rate and rhythm with a normal S1 and S2. No gallops, murmurs, or rubs. Normal PMI, no JVD. No pulse deficits. Respiratory: Lungs have equal breath sounds bilaterally, clear to auscultation and percussion. No rales, rhonchi or wheezes noted. No increased work of breathing, no retractions or nasal flaring. Abdomen/GI: Soft, non-tender, with normal bowel sounds. No distension or tympany. No guarding or rebound. No evidence of tenderness throughout. Skin: Warm, dry with normal turgor. Normal color with no rashes, no lesions, and no evidence of cellulitis. MS/ Extremity: Pulses equal, no cyanosis. Neurovascular intact. Full, normal range of motion. Neuro: Awake and alert, GCS 15, oriented to person, place, time, and situation. Cranial nerves II-XII grossly intact. Motor strength 5/5 in all extremities. Sensory grossly intact. Cerebellar exam normal. Normal gait. 01:53 ECG was reviewed by the Attending Physician. kb Vital Signs: 01:14 BP 146 / 72; Pulse 87; Resp 20; Temp 98.1(O); Pulse Ox 100% on R/A; Weight 56.7 kg; aa1 Height 5 ft. 2 in. (157.48 cm); Pain 4/10; 01:30 BP 136 / 63 Supine; Pulse 79; aa1 01:32 BP 137 / 58 Sitting; Pulse 87; aa1 01:34 BP 142 / 62 Standing; Pulse 84; aa1 02:01 BP 126 / 61; Pulse 71; Resp 20; Pulse Ox 99% on R/A; aa1 03:15 BP 121 / 53; Pulse 69; Resp 18; Temp 97.9; Pulse Ox 100% on R/A; Pain 0/10; aa1 01:14 Body Mass Index 22.86 (56.70 kg, 157.48 cm) aa1 MDM: 01:00 Patient medically screened. kb 01:08 Data reviewed: vital signs, nurses notes. Data interpreted: Pulse oximetry: on room air kb is 98 %. Interpretation: normal. 02:22 Counseling: I had a detailed discussion with the patient and/or guardian regarding: the kb historical points, exam findings, and any diagnostic results supporting the discharge/admit diagnosis, lab results, radiology results, the need for further work-up and treatment in the hospital. 02:28 ED course: Pt does not want to be admitted. States this happens when she gets the least kb bit dehydrated. She mowed the yard today and didn't drink enough water. Wants to get the fluids and electrolytes and go home. Will return for worsening symptoms or any other concerns. . 07/31 01:01 Order name: Basic Metabolic Panel; Complete Time: 02:15 kb 07/31 01:01 Order name: CBC with Diff kb 07/31 01:01 Order name: LFT's; Complete Time: 02:15 kb 07/31 01:01 Order name: Magnesium; Complete Time: 02:15 kb 07/31 01:01 Order name: NT PRO-BNP; Complete Time: 02:15 kb 07/31 01:01 Order name: PT-INR; Complete Time: 01:44 kb 07/31 01:01 Order name: Troponin (emerg Dept Use Only); Complete Time: 02:15 kb 07/31 01:01 Order name: XRAY Chest (1 view) kb 07/31 01:10 Order name: Flu; Complete Time: 02:15 kb 07/31 02:28 Order name: Urine Microscopic Only aa 07/31 02:46 Order name: Urine Culture [facility] 07/31 01:01 Order name: EKG; Complete Time: 01:02 kb 07/31 01:01 Order name: Cardiac monitoring; Complete Time: 01:34 kb 07/31 01:01 Order name: EKG - Nurse/Tech; Complete Time: 02:07 kb 07/31 01:01 Order name: IV Saline Lock; Complete Time: :34 kb 07/31 01:01 Order name: Labs collected and sent; Complete Time: :34 kb 07/31 01:01 Order name: O2 Per Protocol; Complete Time: :35 kb 07/31 01:01 Order name: O2 Sat Monitoring; Complete Time: :35 kb 07/31 01:01 Order name: Orthostatics; Complete Time: :34 kb 07/31 01:01 Order name: Urine Dipstick-Ancillary (obtain specimen); Complete Time: 02:25 kb EC:53 Rate is 74 beats/min. Rhythm is regular, Normal Sinus Rhythm. QRS [place] is Normal. [place] kb interval is normal at 160 msec. QRS interval is normal at 72 msec. QT interval is normal at 410 msec. Administered Medications: 02:25 Drug: Potassium Chloride 40 mEq Route: PO; aa 02:26 Drug: NS 0.9% 500 ml Route: IV; Rate: bolus; Site: right antecubital; aa1 Disposition: 08:53 Co-signature as Attending Physician, Jeffery Crow MD I agree with the assessment and greg plan of care. Disposition: 07/31/18 02:30 Discharged to Home. Impression: Volume depletion, Hypokalemia. - Condition is Stable. - Discharge Instructions: Potassium Content of Foods, Dehydration, Adult, Utan-jy-[id number], Hypokalemia. - Medication Reconciliation Form, Thank You Letter, Antibiotic Education, Prescription Opioid Use form. - Follow up: Emergency Department; When: As needed; Reason: Worsening of condition. Follow up: Private Physician; When: 2 - 3 days; Reason: Recheck today's complaints, Continuance of care, Re-evaluation by your physician. Signatures: Dispatcher [employer] Preeti Kruger, CARLOS ACHARYA-Shelli Sahu RN RN aa1 Jeffery Crow MD MD cha Corrections: (The following items were deleted from the chart) 02:39 02:19 BLOOD CULTURE*+[id number].BRZ ordered. EDMS EDMS 03:19 02:30 07/31/2018 02:30 Discharged to Home. Impression: Volume depletion; Hypokalemia. aa1 Condition is Stable. Forms are Medication Reconciliation Form, Thank You Letter, Antibiotic Education, Prescription Opioid Use. Follow up: Emergency Department; When: As needed; Reason: Worsening of condition. Follow up: Private Physician; When: 2 - 3 days; Reason: Recheck today's complaints, Continuance of care, Re-evaluation by your physician. kb
--- NOTE | 2018-07-31 02:31 | ER ---
Nurse's Notes 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 EMS reports upon arrival pt's BP was WNL and remained normal until arrival to ED. Pt states, "I think I'm just dehydrated and my electrolytes are off.". Transition of care: patient was not received from another setting of care. Onset of symptoms was July 30, 2018 at 21:00. Risk Assessment: Do you want to hurt yourself or someone else? Patient reports no desire to harm self or others. Initial Sepsis Screen: Does the patient meet any 2 criteria? No. Patient's initial sepsis screen is negative. Does the patient have a suspected source of infection? No. Patient's initial sepsis screen is negative. Care prior to arrival: IV initiated. 18 GA, in the right antecubital area, Glucose check: 153. 01:06 Method Of Arrival: EMS: [facility] aa1 01:06 Acuity: WONG 3 aa1 Historical: - Allergies: 01:14 Codeine; aa1 - Home Meds: 01:14 Clonidine Oral [Active]; Hydrochlorothiazide Oral [Active]; Micardis Oral [Active]; aa1 Norvasc Oral [Active]; - PMHx: 01:14 colon cancer- currently in remission; Hyperlipidemia; Hypertension; peritonitis; aa1 uterine cancer; - PSHx: 01:14 colectomy; Hysterectomy; Appendectomy; aa1 - Immunization history:: Flu vaccine is up to date. - Social history:: Smoking status: Patient/guardian denies using tobacco. - Ebola Screening: : No symptoms or risks identified at this time. Screenin:18 Abuse screen: Denies threats or abuse. Denies injuries from another. Nutritional aa1 screening: No deficits noted. Tuberculosis screening: No symptoms or risk factors identified. Fall Risk None identified. Assessment: 01:18 General: Appears in no apparent distress. comfortable, Behavior is calm, cooperative, aa1 appropriate for age. Pain: Complains of pain in back Pain currently is 4 out of 10 on a pain scale. Quality of pain is described as aching, Is chronic. Neuro: Level of Consciousness is awake, alert, obeys commands, Oriented to person, place, time, situation, Moves all extremities. Speech is normal, Facial symmetry appears normal, Pupils are PERRLA. Cardiovascular: Denies chest pain, lightheadedness, palpitations, shortness of breath, Heart tones S1 S2 present Capillary refill < 3 seconds Clubbing of nail beds is absent JVD is absent Patient's skin is warm and dry. Rhythm is regular. Respiratory: Airway is patent Respiratory effort is even, unlabored, Respiratory pattern is regular, symmetrical. GI: No signs and/or symptoms were reported involving the gastrointestinal system. : No signs and/or symptoms were reported regarding the genitourinary system. EENT: No signs and/or symptoms were reported regarding the EENT system. Derm: Skin is intact, is healthy with good turgor, Skin is pink, warm \\T\\ dry. Musculoskeletal: Circulation, motion, and sensation intact. Capillary refill < 3 seconds. 02:01 Reassessment: Patient appears in no apparent distress at this time. Patient and/or aa1 family updated on plan of care and expected duration. Pain level reassessed. Patient is alert, oriented x 3, equal unlabored respirations, skin warm/dry/pink. Awaiting lab results. 02:33 Reassessment: Patient appears in no apparent distress at this time. Patient and/or aa1 family updated on plan of care and expected duration. Pain level reassessed. Patient is alert, oriented x 3, equal unlabored respirations, skin warm/dry/pink. Per CUSHION WORKER, ok to d/c pt once NS bolus complete Patient denies pain at this time. Patient states feeling better. 03:15 Reassessment: Patient appears in no apparent distress at this time. Patient is alert, aa1 oriented x 3, equal unlabored respirations, skin warm/dry/pink. NS bolus complete. Discussed d/c \\T\\ f/u instructions with pt \\T\\ family; denies questions or concerns at this time. Vital Signs: 01:14 BP 146 / 72; Pulse 87; Resp 20; Temp 98.1(O); Pulse Ox 100% on R/A; Weight 56.7 kg; aa1 Height 5 ft. 2 in. (157.48 cm); Pain 4/10; 01:30 BP 136 / 63 Supine; Pulse 79; aa1 01:32 BP 137 / 58 Sitting; Pulse 87; aa1 01:34 BP 142 / 62 Standing; Pulse 84; aa1 02:01 BP 126 / 61; Pulse 71; Resp 20; Pulse Ox 99% on R/A; aa1 03:15 BP 121 / 53; Pulse 69; Resp 18; Temp 97.9; Pulse Ox 100% on R/A; Pain 0/10; aa1 01:14 Body Mass Index 22.86 (56.70 kg, 157.48 cm) aa1 ED Course: 01:00 Patient arrived in ED. kb 01:00 Preeti Reinoso FNP-C is PHCP. kb 01:00 Jeffery Crow MD is Attending Physician. kb 01:06 Shelli Hazel RN is Primary Nurse. aa1 01:11 Triage completed. aa1 01:14 Arm band placed on right wrist. aa1 01:18 Patient has correct armband on for positive identification. Bed in low position. Call aa1 light in reach. Side rails up X2. Pulse ox on. NIBP on. 01:18 Maintain EMS IV. Dressing intact. Site clean \\T\\ dry. Gauge \\T\\ site: 18g RAC. aa 1 01:26 XRAY Chest (1 view) In Process Unspecified. EDMS 03:15 No provider procedures requiring assistance completed. IV discontinued, intact, aa1 bleeding controlled, No redness/swelling at site. Pressure dressing applied. Administered Medications: 02:25 Drug: Potassium Chloride 40 mEq Route: PO; aa1 02:26 Drug: NS 0.9% 500 ml Route: IV; Rate: bolus; Site: right antecubital; aa1 Outcome: 02:30 Discharge ordered by . kb 03:15 Discharged to home ambulatory, with family. aa1 03:15 Condition: good 03:15 Discharge instructions given to patient, family, Instructed on discharge instructions, follow up and referral plans. Demonstrated understanding of instructions, follow-up care. 03:19 Patient left the ED. aa1 Signatures: Dispatcher [employer] EDTN Kemar, Preeti, BOWLING PIN REFINISHER-C BOWLING PIN REFINISHER-Ckb Shelli Hazel, RN RN aa1
[2018-07-31] MEDS ORDERED: POTASSIUM CL SA 10 MEQ TAB PO ONE ×3 (02:33→02:57)
[2018-07-31 02:44] LABS: Urine Bacteria 20-50 /HPF (<20); Urine Culture Reflex Order REFLEXED; Urine RBC <5 /HPF (NONE SEEN)
[2018-07-31] MEDS ORDERED: ONDANSETRON 4 MG/2 ML VIAL ONE (02:56)
[2018-07-31 03:48] LABS: Blood Morphology Comment NOT SEEN (NOT SEEN); Platelet Estimate ADEQ; Urine White Blood Cell Casts OK
--- NOTE | 2018-07-31 07:58 | RAD REPORT ---
EXAM DESCRIPTION: Saad Single View07/31/2018 1:25 am CLINICAL HISTORY: Chest pain COMPARISON: 2017 FINDINGS: The lungs appear clear of acute infiltrate. The heart is mildly enlarged IMPRESSION: No acute abnormalities displayed
--- NOTE | 2018-07-31 10:43 | EKG ---
Test Date: 2018-07-31 Test Time: 01:48:10 Color Adviser: JEROME MEASUREMENT RESULTS: Intervals: Rate: 74 MI: 160 QRSD: 72 QT: 410 QTc: 455 [place]: P: 47 MI: 160 QRS: 28 T: 66 INTERPRETIVE STATEMENTS: Normal sinus rhythm Nonspecific T wave abnormality Abnormal ECG Compared to ECG 06/25/2000 23:01:00 No significant changes Electronically Signed On 07-31-18 10:42:32 CDT by Corky Alejandro
== END 2018-07-31 03:19 | disposition home or self-care (01) ==
LOC: ER 00:55
DX: E86.9 Volume depletion, unspecified (principal); E87.6 Hypokalemia; Z88.5 Allergy status to narcotic agent; C18.9 Malignant neoplasm of colon, unspecified; E78.5 Hyperlipidemia, unspecified; C55 Malignant neoplasm of uterus, part unspecified
CPT/HCPCS: 93005; 87088; 85025; 87086; 80048; 36415; 83735; 85610; 80076; 81015; 84484; 83880; 87804 ×2; 71045; 99284; J2405

== ENCOUNTER 2018-08-15 08:05 | Day surgery (SDC) | payer OTHER ==
[2018-08-13 17:26] LABS: Potassium 3.5 mmol/L (3.5-5.1)
[2018-08-13 18:02] LABS: Absolute Lymphocytes (CBC) 1.1 K/uL (0.7-4.9); Absolute Monocytes 1.1 K/uL (0.1-1.3); Absolute Neutrophil 8.1 K/uL (1.8-8.0); Basophils % 0.2 % (0-1.3); Eosinophils % 0.6 % (0-4.4); Hematocrit 32.5 % (36.0-45.0); Lymphocytes % 10.4 % (15.3-44.8); MPV 7.7 fL (7.6-11.3); Monocytes % 10.2 % (3.3-12.3); RBC Red Blood Cell Count 3.99 M/uL (3.86-4.86)
--- OUTSIDE RECORDS SUMMARY | 2018-08-15 08:07 | XMS REPORT ---
:1940 Author Organization eClinicalWorks Care Team Providers Name Role Phone Mik Pending [facility] To [facility] Provider Role Unavailable Allergies No Known Allergies Problems Problem Type Condition Code Onset Dates Condition Status Problem Colitis K52.9 Active Problem Persistent insomnia G47.00 Active Problem Hypokalemia E87.6 Active Problem Dyslipidemia E78.5 Active Problem Benign essential HTN I10 Active Problem White coat syndrome with high blood R03.0 Active pressure but without hypertension Problem Hyperlipidemia E78.5 Active Medications No Known Medications Results No Known Results Summary Purpose eClinicalWorks Submission
--- OUTSIDE RECORDS SUMMARY | 2018-08-15 08:07 | XMS REPORT ---
:1940 Author Organization eClinicalWorks Care Team Providers Name Role Phone Houser, [facility] Provider Role Unavailable Allergies, Adverse Reactions, Alerts [...] End Status Dosage System Date Date Micardis [facility] 56281179453 80 MG Orally June Active 1 tablet Once a day 2018 Simvastatin [facility] 99847671495 20 MG Orally Active 1 tablet Once a day in the evening Hydrochlorothiazide [facility] 16697589317 12.5 MG Orally June Active 1 tablet Once a day , in the 2018 morning Clonidine HCl [facility] 39237475491 0.1 MG Orally Active 1 tablet Once a day at bedtime Norvasc [facility] 31563980841 5 MG Orally Active 1 tablet Once a day Aspir-81 [facility] 32877546751 81 MG Orally Active 1 tablet Once a day Vitamin C [facility] 82255190790 500 MG Orally Active not defined Ventolin HFA [facility] 29219404331 108 (90 Base) Active 2 puffs MCG/ACT as needed Inhalation every 6 hrs Unisom [facility] 82675637822 25 MG Orally Active 1 tablet Once a day at bedtime as needed Results No Known Results Summary Purpose eClinicalWorks Submission
--- OUTSIDE RECORDS SUMMARY | 2018-08-15 08:07 | XMS REPORT ---
:1940 Author Organization eClinicalWorks Care Team Providers Name Role Phone Mik Counts Include [address] [facility] Provider Role Unavailable Allergies No Known Allergies Problems Problem Type Condition Code Onset Dates Condition Status Assessment Hypokalemia E87.6 Active Problem Colitis K52.9 Active Problem Persistent insomnia G47.00 Active Problem Hypokalemia E87.6 Active Problem Dyslipidemia E78.5 Active Problem Benign essential HTN I10 Active Problem White coat syndrome with high blood R03.0 Active pressure but without hypertension Problem Hyperlipidemia E78.5 Active Medications Medication Code Code Instructions Start End Status Dosage System Date Date Potassium NDC 03953472214 20 MEQ Orally August 01, 1 capsule Chloride Once a day 2019 Results No Known Results Summary Purpose eClinicalWorks Submission
--- OUTSIDE RECORDS SUMMARY | 2018-08-15 08:08 | XMS REPORT ---
:1940 Author Organization eClinicalWorks Care Team Providers Name Role Phone Gladys Dinh Provider Role Unavailable Allergies No Known Allergies Problems Problem Type Condition Code Onset Dates Condition Status Problem Benign essential HTN I10 Active Problem Hypokalemia E87.6 Active Problem Colitis K52.9 Active Problem Perineal pain in female N94.9 Active Problem Hyperlipidemia E78.5 Active Problem Dyslipidemia E78.5 Active Problem Persistent insomnia G47.00 Active Problem White coat syndrome with high blood R03.0 Active pressure but without hypertension Medications No Known Medications Results No Known Results Summary Purpose eClinicalWorks Submission
--- OUTSIDE RECORDS SUMMARY | 2018-08-15 08:08 | XMS REPORT ---
:1940 Author Organization eClinicalWorks Care Team Providers Name Role Phone Mik [facility] Provider Role Unavailable Allergies No Known Allergies [...]
--- OUTSIDE RECORDS SUMMARY | 2018-08-15 08:08 | XMS REPORT ---
:1940 Author Organization eClinicalWorks Care Team Providers Name Role Phone Primitivo Elena Provider Role Unavailable Allergies No Known Allergies [...] R03.0 Active pressure but without hypertension Medications Medication Code System Code Instructions Start Date End Date Status Dosage Zofran [facility] 14661837546 4 MG Orally every August 12, Active 1 tablet 6 hours as needed 2018 for Nausea Results No Known Results Summary Purpose eClinicalWorks Submission
--- OUTSIDE RECORDS SUMMARY | 2018-08-15 08:08 | XMS REPORT ---
:1940 Author Organization eClinicalWorks Care Team Providers Name Role Phone Primitivo Elena Provider Role Unavailable Allergies, Adverse Reactions, Alerts Substance Reaction Event Type Clotrimazole Diarrhea Drug Allergy Cipro Rash Drug Allergy Cephalexin Diarrhea Drug Allergy Problems Problem Type Condition Code Onset Dates Condition Status Assessment Perineal pain in female N94.9 Active Problem Benign essential HTN I10 Active Problem Hypokalemia E87.6 Active Problem Colitis K52.9 Active Problem Perineal pain in female N94.9 Active Problem Hyperlipidemia E78.5 Active Problem Dyslipidemia E78.5 Active Problem Persistent insomnia G47.00 Active Problem White coat syndrome with high blood R03.0 Active pressure but without hypertension Medications Medication Code Code Instructions Start End Status Dosage System Date Date Ventolin HFA [facility] 74737405131 108 (90 Base) Active 2 puffs MCG/ACT as needed Inhalation every 6 hrs Potassium Chloride [facility] 03510796155 20 MEQ Orally July Active 1 capsule Once a day 2018 Simvastatin [facility] 15374157439 20 MG Orally Active 1 tablet Once a day in the evening Hydrochlorothiazide [facility] 28068888895 12.5 MG Orally June Active 1 tablet Once a day , in the 2018 morning Aspir-81 [facility] 81699504597 81 MG Orally Active 1 tablet Once a day Vitamin C [facility] 10898432346 500 MG Orally Active not defined Norvasc [facility] 17264583657 5 MG Orally Active 1 tablet Once a day Clonidine HCl [facility] 29730979007 0.1 MG Orally Active 1 tablet Once a day at bedtime Micardis [facility] 74736460686 80 MG Orally June Active 1 tablet Once a day 2018 Unisom [facility] 28788802628 25 MG Orally Active 1 tablet Once a day at bedtime as needed Results No Known Results Summary Purpose eClinicalWorks Submission
[2018-08-15] MEDS ORDERED: Ringers Lactate 0 ML IV ONE (08:42)
[2018-08-15] MEDS ORDERED: CEFAZOLIN/SWI 1gm 0 GM/0 ML SYR ONE (08:43)
[2018-08-15] MEDS ORDERED: VANCOMYCIN 1 GM in NA CHLORIDE 0.9% 250 ML IV ONE (09:05)
[2018-08-15 09:13] LABS: Potassium 3.2 mmol/L (3.5-5.1)
[2018-08-15] MEDS ORDERED: PROPOFOL 200 MG/20 ML VIAL IV ONE (09:50)
[2018-08-15] MEDS ORDERED: MIDAZOLAM HCL 2 MG/2 ML INJ ONE (09:50)
[2018-08-15] MEDS ORDERED: FENTANYL CITR 100 MCG/2 ML ONE (09:50)
[2018-08-15] MEDS ORDERED: LIDOCAINE 2% MPF 5 ML VIAL ONE (09:50)
[2018-08-15] MEDS ORDERED: DEXAMETHASONE 10 MG/ML VIAL ONE (09:50)
[2018-08-15] MEDS ORDERED: BUPIVACA 0.25%/EPI 0.0005%/PF 30 ML VIAL ONE (10:09)
--- NOTE | 2018-08-15 10:50 | P.OP ---
Director Project Management: Jorge A Bazzi Preoperative diagnosis: Anal mass / abscess Postoperative diagnosis: Anal Cancer Primary procedure: Exam under anesthesia Secondary procedure: Biopsy of anal mass Other procedure(s): Rigid Proctoscopy Anesthesia: GETA + Local Estimated blood loss: <2cc Specimen: Anal Margin mass Findings: Stenosis of anal canal, firm fungating mass of anus extending to vagina Complications: None Transferred to: Recovery Room Condition: Good
[2018-08-15] MEDS ORDERED: KETOROLAC 30 MG/ML INJ ONE (10:55)
[2018-08-15] MEDS ORDERED: MEPERIDINE HCL 25 MG/0.5 ML ONE (11:23)
[2018-08-15 12:57] LABS: Absolute Lymphocytes (CBC) 0.5 K/uL (0.7-4.9); Absolute Monocytes 0.2 K/uL (0.1-1.3); Absolute Neutrophil 8.5 K/uL (1.8-8.0); Basophils % 0.4 % (0-1.3); Eosinophils % 0.3 % (0-4.4); Hematocrit 34.7 % (36.0-45.0); Lymphocytes % 5.9 % (15.3-44.8); MPV 7.5 fL (7.6-11.3); RBC Red Blood Cell Count 4.22 M/uL (3.86-4.86)
[2018-08-15 13:22] LABS: Albumin 3.7 g/dL (3.4-5.0); Bilirubin Direct 0.2 mg/dL (0-0.2); Bilirubin Total 0.7 mg/dL (0.2-1.0); Carcinoembryonic Antigen 1.2 ng/mL (0-5.0); Protein, Total 7.5 g/dL (6.4-8.2)
[2018-08-15 13:44] LABS: Platelet Estimate INCR; Urine White Blood Cell Casts OK
[2018-08-15 13:45] LABS: Blood Morphology Comment NOT SEEN (NOT SEEN)
--- NOTE | 2018-08-15 16:03 | RAD REPORT ---
EXAM DESCRIPTION: CT - Chest Abdomen Pelvis W Cont - 08/15/2018 2:55 pm CLINICAL HISTORY: Chest and abdomen pain. S/P SURGERY COMPARISON: Abdomen Pelvis W Contrast dated 03/17/2018 TECHNIQUE: Approximately 100 mL nonionic IV contrast was administered to the patient. All CT scans are performed using dose optimization technique as appropriate and may include automated exposure control or mA/KV adjustment according to patient size. FINDINGS: The lungs are emphysematous but clear. Mild linear subsegmental atelectasis is present in both lung bases. Mild aortic arch atherosclerosis.No pleural or pericardial effusion.Small hiatal her taniya.No intrathoracic adenopathy. Mild diffuse fatty liver is present. Small benign hepatic cysts are present. The spleen, pancreas, ad renal glands and and kidneys are within normal limits. Small benign cysts present in the cortex of le ft kidney. No bowel obstruction, free air, free fluid or abscess. Appendectomy and right hemicolectomy noted. Th ere is a moderate ventral hernia present along the midline lower abdomen containing colon and small i ntestine without obstruction. No pathologic lymphadenopathy in the abdomen or pelvis. Fullness of the tissues in the perirectal region are seen however tissue planes are not readily clear and is difficu lt to delineate with aerated mass or fluid collection is present in this region. No worrisome osseous finding. IMPRESSION: Moderate lower abdominal ventral hernia is present containing large and small bowel with out obstruction. Moderate fecal retention is seen in the colon. Perirectal soft tissues appear full/prominent, however, the tissue planes are not well demarcated in this region and is difficult to clearly delineate a mass or fluid collection in this region. Direct v isualization would be suggested.
--- NOTE | 2018-08-15 20:32 | OP ---
Date of Procedure: 08/15/2018 Surgeon: Primitivo Elena MD, Preoperative Diagnosis: Anal mass/abscess. Postoperative Diagnosis: Likely anal cancer. Procedures: 1.Exam under anesthesia. 2.Biopsy of anal mass. 3.Rigid proctoscopy. Anesthesia: General endotracheal plus local with 0.25% Marcaine with epinephrine. Estimated Blood Loss: Less than 2 cc. Specimen: Anal margin mass. Findings: 1.Stenosis of the anal canal difficult to digitize. Able to pass a proctoscope, but firm fungating tissue was appreciated as far as the scope could be advanced, which was only 4-5 cm as there continue d to be bleeding anal mass tissue with continued advancement and as such I decided not to push on. T he vagina had obvious involvement as well with fungating tissue coming out from the posterior wall of the vagina, and it was in continuity with the anal tissue. This firm tissue extended through the en tire perineum and had a fungating appearance externally. Complications: The patient had no complications. Disposition: Transferred to recovery room in good condition. Procedure In Detail: After informed consent was obtained, the patient was brought to the operating r oom, prepped and draped in the usual sterile fashion. After adequate anesthesia was achieved, I perf ormed a digital rectal examination and palpated the areas above. A digital examination of the lamp decorator ior wall of vagina found a firm fungating mass, which had brown effluent from this consistent with a fistulous connection or abscess drainage from the likely anorectal source. I digitally examined the anus and found firm, friable, fungating tissue at the anal margin extending up externally to the vagi na and into the anal canal as far as I could advance my finger. A rigid proctoscope was inserted to the tip and continued firm, friable, bleeding, fungating tissue was appreciated, and as such, I aband oned the advancement of the proctoscope at this time. I then took a biopsy from the anal verge area in the perineal septum region where there was a large fungating piece of tissue and sent this off for pathologic examination with a likely diagnosis of anal cancer. I then irrigated the area and placed a sterile dressing over the top. The patient tolerated the procedure well without evidence of compl ication, transferred to PACU in good condition. All counts were correct at the end of the case. TK/MODL Voice ID: [id number] Report ID: [id number]
== END 2018-08-15 14:30 | disposition home or self-care (01) ==
LOC: PRE 08:05
PROVIDERS: ATTEND Surgery
PROC: 0WBNXZX Excision of Female Perineum, External Approach, Diagnostic (ICD-10-PCS; principal; 2018-08-15 11:15)
DX: C21.0 Malignant neoplasm of anus, unspecified (principal); K62.4 Stenosis of anus and rectum; E78.5 Hyperlipidemia, unspecified; I10 Essential (primary) hypertension; Z79.899 Other long term (current) drug therapy
CPT/HCPCS: 56605; 85025 ×2; 80048; 36415 ×2; 80076; 80051; 88305; 82378; 80053; 82105; 71260; 74177; Q9967; J2704; J2250; J3010; J1100; J2175; J0690

== ENCOUNTER 2018-10-31 07:25 | Day surgery (SDC) | payer OTHER ==
--- OUTSIDE RECORDS SUMMARY | 2018-10-31 07:28 | XMS REPORT ---
:1940 Author Organization eClinicalWorks Care Team Providers Name Role Phone Mik [facility] Provider Role Unavailable Allergies No Known Allergies [...]
--- OUTSIDE RECORDS SUMMARY | 2018-10-31 07:28 | XMS REPORT ---
[...] Status Dosage System Date Date Ventolin HFA [facility] 05814471087 108 (90 Base) Active 2 puffs MCG/ACT as needed Inhalation every 6 hrs Potassium Chloride [facility] 80227928643 20 MEQ Orally July Active 1 capsule Once a day 2018 Simvastatin [facility] 62623157587 20 MG Orally Active 1 tablet Once a day in the evening Hydrochlorothiazide [facility] 55455671921 12.5 MG Orally June Active 1 tablet Once a day , in the 2018 morning Aspir-81 [facility] 19772176551 81 MG Orally Active 1 tablet Once a day Vitamin C [facility] 12216149837 500 MG Orally Active not defined Norvasc [facility] 53745358888 5 MG Orally Active 1 tablet Once a day Clonidine HCl [facility] 44891341325 0.1 MG Orally Active 1 tablet Once a day at bedtime Micardis [facility] 58721288105 80 MG Orally June Active 1 tablet Once a day 2018 Unisom [facility] 62884604891 25 MG Orally Active 1 tablet Once a day at bedtime as needed Results No Known Results Summary Purpose eClinicalWorks Submission
--- OUTSIDE RECORDS SUMMARY | 2018-10-31 07:28 | XMS REPORT | Clinical Summary ---
:1940 Author Organization [facility] Address [address] [place] [address] Care Team Providers Name Role Phone Aubrey Houser Primary Care Provider Allergies Active Allergy Reactions Severity Noted Date Comments Amoxicillin Diarrhea 08/28/2018 Cephalexin Diarrhea 08/28/2018 Ciprofloxacin Hives, Rash Low 08/28/2018 Clavulanic Acid Diarrhea 08/28/2018 Codeine GI Intolerance 08/28/2018 Medications Medication Sig Dispensed Refills Start Date End Date Status amLODIPine (NORVASC) 5 Take 5 mg by 0 Active mg tablet mouth daily. doxylamine (UNISON) 25 Take 25 mg by 0 Active mg tablet mouth nightly as needed for sleep. simvastatin (ZOCOR) 20 Take 20 mg by 0 Active MG tablet mouth every morning. telmisartan (MICARDIS) Take 80 mg by 0 Active 80 MG tablet mouth daily. clonIDINE Place 1 patch 0 Active (CATAPRES-TTS) 0.1 on the skin mg/24 hr once a week. metroNIDAZOLE (FLAGYL) Take 1 tablet 21 tablet 0 08/31/2018 09/07/2018 500 MG tablet (500 mg total) by mouth 3 (three) times a day for 7 days. 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 Encounters Date Type Specialty Care Team Description 10/10/2018 Documentation General Surgery Annie Quinones 09/19/2018 Office Visit General Surgery Augustine Keating Rectal cancer (HCC) MD Tee (Primary Dx) Annie Quinonse 09/02/2018 Telephone General Surgery Flako Zaragoza MA 08/29/2018 Anesthesia Event General Surgery Fernando Sierra MD 08/29/2018 Surgery General Surgery Augustine Keating CREATION, COLOSTOMY, MD Tee LAPAROSCOPIC 08/28/2018 - Hospital Encounter Cardiovascular Augustine Keating 08/31/2018 MD Tee 08/28/2018 Office Visit General Surgery Augustine Keating Rectal cancer (HCC) ( Primary Dx); MD Tee Perirectal abscess; Severe protein-calorie malnutrition (HCC); Fecal smearing after 10/30/2017 Family History Medical History Relation Name Comments Colon cancer Maternal Grandmother Hypertension Mother Relation Name Status Comments Maternal Grandmother Mother Social History Tobacco Use Types Packs/Day Years Used Date Never Smoker Smokeless Tobacco: Never Used Alcohol Use Drinks/Week oz/Week Comments No Alcohol Habits Answer Date Recorded How often do you have a drink containing alcohol? Never 08/28/2018 How many drinks containing alcohol do you have on a typical Not asked day when you are drinking? How often do you have six or more drinks on one occasion? Not asked Sex Assigned at Date Recorded Not on file Job Start Date Occupation Industry Not on file Not on file Not on file Travel History Travel Start Travel End No recent travel history available. Last Filed Vital Signs Vital Sign Reading Time Taken Blood Pressure 143/71 09/19/2018 2:41 PM CDT Pulse 78 09/19/2018 2:41 PM CDT Temperature 36.4 C (97.5 F) 08/31/2018 8:58 AM CDT Respiratory Rate 19 08/31/2018 8:58 AM CDT Oxygen Saturation 100% 08/31/2018 8:58 AM CDT Inhaled Oxygen Concentration - - Weight 55.8 kg (123 lb) 08/28/2018 6:57 PM CDT Height 157.5 cm (5' 2") 08/28/2018 6:57 PM CDT Body Mass Index 22.5 08/28/2018 6:57 PM CDT Plan of Treatment Health Maintenance Due Date Last Done Comments SHINGLES VACCINES (#1) 1988 65+ PNEUMOCOCCAL VACCINE (1 of 2 - PCV13) 2003 INFLUENZA VACCINE 11/21/2018 Procedures Procedure Name Priority Date/Time Associated Comments Diagnosis HC COMPLETE BLD COUNT Routine 08/31/2018 4:50 Results for this W/AUTO DIFF AM CDT procedure are in the results section. ESTIMATED GFR Routine 08/31/2018 4:00 Results for this AM CDT procedure are in the results section. BASIC METABOLIC PANEL Routine 08/31/2018 4:00 Results for this AM CDT procedure are in the results section. CONSULT TO OSTOMY Routine 08/30/2018 9:33 CARE NURSE AM CDT HC COMPLETE BLD COUNT Routine 08/30/2018 4:15 Results for this W/AUTO DIFF AM CDT procedure are in the results section. ESTIMATED GFR Routine 08/30/2018 4:00 Results for this AM CDT procedure are in the results section. BASIC METABOLIC PANEL Routine 08/30/2018 4:00 Results for this AM CDT procedure are in the results section. NE AN ELECTIVE Routine 08/29/2018 2:08 ENDOTRACHEAL AIRWAY PM CDT Procedure Note - Cesar Zimmer CRNA - 08/29/2018 2:08 PM CDT Airway Date/Time: 08/29/2018 2:08 PM Performed by: Cesar Zimmer CRNA Authorized by: Gerald Carlin II, MD Location: OR Urgency: Elective Difficult Airway: No Performed by: resident/ENTERPRISE APPLICATION ANALYST/AA Preoxygenated with 100% O2: Yes C-spine Precautions Maintained Throughout: Yes Mask Ventilation: Easy mask Final Airway Type: Endotracheal airway Final Endotracheal Airway: ETT Cuffed: Yes Technique Used: Direct laryngoscopy Devices/Methods Used in Placement: Intubating stylet Insertion Site: Oral Blade Type: Mill[place] Laryngoscope Blade/Videolaryngoscope Blade Size: 2 ETT Size (mm): 7.0 Cuff at minimum occlusion pressure: Yes Measured from: Lips ETT to Lips (cm): 21 Placement Verified by: CO2 detection, direct visualization and equal breath sounds Laryngoscopic view: Grade I - full view of glottis Rapid Sequence Induction (RSI): No Modified RSI: No Number of Attempts at Approach: 1 INCISION AND DRAINAGE, 08/29/2018 1:05 PM CDT Rectal cancer (HCC) ABSCESS, ISCHIORECTAL OR Perirectal abscess PERIRECTAL Case Notes TBTF ~ 1300, REQ 1300 START PER ALLESONDRA @ [facility] Special Needs TBA- TF ~ 1300, REQ 1300 START PER ALLESONDRA @ [facility] CREATION, COLOSTOMY, 08/29/2018 1:05 PM CDT Rectal cancer (HCC) LAPAROSCOPIC Perirectal abscess Case Notes TBA- TF ~ 1300, REQ 1300 START PER ALLESONDRA @ [facility] Special Needs TBA- TF ~ 1300, REQ 1300 START PER ALLESONDRA @ [facility] HC COMPLETE BLD COUNT W/AUTO Routine 08/29/2018 9:43 AM CDT Results for this DIFF procedure are in the results section. ESTIMATED GFR Routine 08/29/2018 4:00 AM CDT BASIC METABOLIC PANEL Routine 08/29/2018 4:00 AM CDT ECHOCARDIOGRAM 2D COMPLETE W STAT 08/29/2018 12:05 AM CDT Results for this MMODE SPECTRAL COLOR DOPPLER procedure are in the (29526) results section. ECG 12-LEAD STAT 08/28/2018 7:49 PM CDT XR CHEST 2 VW STAT 08/28/2018 7:25 PM CDT PREPARE RBC Routine 08/28/2018 6:17 PM CDT HC COMPLETE BLD COUNT W/AUTO Routine 08/28/2018 6:17 PM CDT Results for this DIFF procedure are in the results section. TYPE AND SCREEN Routine 08/28/2018 6:17 PM CDT CONSULT TO OSTOMY CARE NURSE Routine 08/28/2018 6:15 PM CDT ESTIMATED GFR Routine 08/28/2018 5:59 PM CDT PREALBUMIN LEVEL Routine 08/28/2018 5:59 PM CDT CARCINOEMBRYONIC ANTIGEN (CEA) Routine 08/28/2018 5:59 PM CDT COMPREHENSIVE METABOLIC PANEL Routine 08/28/2018 5:59 PM CDT after 10/30/2017 Results CBC with platelet and differential (08/31/2018 4:50 AM CDT)Only the most recent of4 resultswithin the time period is included. WBC 7.38 4.50 - 11.00 [facility] RBC 3.16 (L) 4.20 - 5.50 [facility] HGB 8.8 (L) 12.0 - 16.0 [facility] g/dL [facility] HCT 27.9 (L) 37.0 - 47.0 % [facility] MCV 88.3 82.0 - 100.0 [facility] MCH 27.8 27.0 - 34.0 pg [facility] MCHC 31.5 31.0 - 37.0 [facility] g/dL [facility]OSPITAL RDW - [place] 42.9 37.0 - 55.0 fL [facility] MPV 9.8 8.8 - 13.2 fL [facility] Platelet count 326 150 - 400 k/uL [facility] Nucleated RBC 0.00 /100 WBC [facility] Neutrophils 74.9 (H) 39.0 - 69.0 % [facility] Lymphocytes 14.6 (L) 25.0 - 45.0 % [facility] Monocytes 7.6 0.0 - 10.0 % [facility] Eosinophils 2.0 0.0 - 5.0 % [facility] Basophils 0.5 0.0 - 1.0 % [facility] Immature granulocytes 0.4Comment: 0.0 - 1.0 % [facility] "[facility] HOSPITAL granulocytes" (promyelocytes , myelocytes, metamyelocytes ) Specimen Blood Performing Organization Address City/State/Zipcode Phone Number [facility] DEPARTMENT OF PATHOLOGY AND [address] [place] [phone] Estimated GFR (08/31/2018 4:00 AM CDT)Only the most recent of4 resultswithin the time period is included. Estimated GFR 76 mL/min/1.73 [facility] Comment: HOSPITAL CatergoryUnitsInterpretation G1 >=90 Normal or high G2 60-89Mildly decreased [id number] to moderately decreased L3a68-01Rxloyuaflb to severely decreased G4 15-29Severely decreased G5 <15Kidney failure The eGFR was calculated using the Chronic Kidney Disease Epidemiology Collaboration (CKD-EPI) equation. Interpretation is based on recommendations of the National Kidney Foundation-Kidney Disease Outcomes Quality Initiative (NKF-KDOQI) published in 2014. Specimen Plasma specimen Performing Organization Address City/State/Zipcode Phone Number [facility] DEPARTMENT OF PATHOLOGY AND [address] [place] [phone] [address] Basic metabolic panel (08/31/2018 4:00 AM CDT)Only the most recent of3 resultswithin the time period is included. Sodium 134 (L) 135 - 148 mEq/L [facility] Potassium 3.8 3.5 - 5.0 mEq/L [facility] Chloride 98 98 - 112 mEq/L [facility] CO2 23 (L) 24 - 31 mEq/L [facility] Anion gap 13@ANIO 7 - 15 mEq/L [facility] BUN 13 8 - 23 mg/dL [facility] Creatinine 0.74 0.50 - 0.90 mg/dL [facility] Glucose 98 65 - 99 mg/dL [facility] Calcium 8.9 8.8 - 10.2 mg/dL [facility] Specimen Plasma specimen Performing Organization Address City/State/Zipcode Phone Number [facility] DEPARTMENT OF PATHOLOGY AND [address] [place] [address] [place] [address] Echocardiogram complete w contrast and 3D if needed (08/29/2018 12:05 AM CDT) Specimen Narrative Performed At [facility] Echocardiography Report [address] [place] [address].Name:YESSENIA RAY.ID:[id number] .Date: 08/28/2018Exam Time: 9:13:00 PM Study Type:Routine EchoHeight:62.01in Weight:122.76lbBSA: 1.55 m2 DOBAge:1940,78Y Sex: FEMALE BP:137/80HR: 62 bpm Sonogrphr: Julia Zelaya. Stat.:Inpatient Room:[place] [address] Study Status:Final Echo Event ID:[id number] Order ID:[id number] Reason for Study:PRE-OP Procedures:2D Echo, Colorflow Doppler, Strain, Portable, Stat Race:C SUMMARY: LV size is normal. LV EF is hyperdynamic. Estimated EF is >70%. LV GLS is normal at -23.7% RV size is normal. RV systolic function is normal. FINDINGS: LV: LV size is normal. LV EF is hyperdynamic. Overall wall motionis hyperdynamic. Estimated EF is >70%. LV GLS is normalat -23.7% RV: RV size is normal. RV systolic function is normal. LA: LA volume is mildly enlarged. RA: RA size is normal. AO: Aortic root diameter is upper limits of normal in size. DAVIDA: No pericardial effusion. IAS:Interatrial septum is thickened consistent with lipomatous hypertrophy. AV: Focal calcification of AV leaflets. MV: There is Chordal systolic anterior motion of the mitral valve.A trace of mitral regurgitation. PV: No structural PV abnormalities noted. TV: No structural TV abnormalities noted. Mild tricuspid regurgitation Saleh: LV relaxation is impaired. LV filling pressure is borderline elevated. Other:Estimated PA systolic pressure is 36 mmHg, assuming a mean RAPof 5 mmHg. MEASUREMENTS: 2D Parasternal [place] LVIDd4.3 cmIndex2.8 cm/m LA Ds2.9 cm LVIDs2.1 cmAo Rtd 3.2 cm Index2.1 cm/m LV%fs 51.2 % LV Avwq697.7 g(87-129) IVSd 1 cmLVM Index 85.6 g/m2 LVPWd0.9 cmRWT0.4 LA Sng Plane LA Area 18.2 cm2(8.8-23.4) LA Vol54 ml Index34.8 ml/m LA LngAx 5.1 cm RA Sng Plane RA Area9.2 cm2(8.3-19.5) RA Vol19.1 ml Index12.3 ml/m RA LngAx 3.8 cm DOPPLER LVOT Stroke Vol LVOT 1.8 cmLVOT CO9.7 l/min LVOT TVI29.7 cmLVOT CI6.2 l/m/m2 LVOT Tm377 msecHR 128 bpm LVOT SV 75.6 ml Signed 08/29/2018 10:17 AM Bo Farmer M.D. Procedure Note Interface, Radiology Results In - 08/29/2018 10:17 AM CDT Echocardiography Report [address] [place] [address] Pat.Name: YESSENIA RAY Pat.ID: [id number] St.Date: 08/28/2018 Exam Time: 9:13:00 PM Study Type:Routine Echo Height: 62.01in Weight: 122.76lb BSA: 1.55 m2 Age: 1 1940,78Y Sex: FEMALE BP: 137/80 HR: 62 bpm Sonogrphr: IMMANUEL Zelaya Pat. Stat.:Inpatient Room: [place] [address] Study Status:Final Echo Event ID:[id number] Order ID: [id number] Reason for Study:PRE-OP Procedures:2D Echo, Colorflow Doppler, Strain, Portable, Stat Race: C SUMMARY: LV size is normal. LV EF is hyperdynamic. Estimated EF is >70%. LV GLS is normal at -23.7% RV size is normal. RV systolic function is normal. FINDINGS: LV: LV size is normal. LV EF is hyperdynamic. Overall wall motion is hyperdynamic. Estimated EF is >70%. LV GLS is normal at -23.7% RV: RV size is normal. RV systolic function is normal. LA: LA volume is mildly enlarged. RA: RA size is normal. AO: Aortic root diameter is upper limits of normal in size. DAVIDA: No pericardial effusion. IAS: Interatrial septum is thickened consistent with lipomatous hypertrophy. AV: Focal calcification of AV leaflets. MV: There is Chordal systolic anterior motion of the mitral valve. A trace of mitral regurgitation. PV: No structural PV abnormalities noted. TV: No structural TV abnormalities noted. Mild tricuspid regurgitation Saleh: LV relaxation is impaired. LV filling pressure is borderline elevated. Other: Estimated PA systolic pressure is 36 mmHg, assuming a mean RAP of 5 mmHg. MEASUREMENTS: 2D Parasternal [place] LVIDd 4.3 cm Index 2.8 cm/m LA Ds 2.9 cm LVIDs 2.1 cm Ao Rtd 3.2 cm Index 2.1 cm/m LV%fs 51.2 % LV Mass 132.7 g (87-129) IVSd 1 cm LVM Index 85.6 g/m2 LVPWd 0.9 cm RWT 0.4 LA Sng Plane LA Area 18.2 cm2 (8.8-23.4) LA Vol 54 ml Index 34.8 ml/m LA LngAx 5.1 cm RA Sng Plane RA Area 9.2 cm2 (8.3-19.5) RA Vol 19.1 ml Index 12.3 ml/m RA LngAx 3.8 cm DOPPLER LVOT Stroke Vol LVOT 1.8 cm LVOT CO 9.7 l/min LVOT TVI 29.7 cm LVOT CI 6.2 l/m/m2 LVOT Tm 377 msec HR 128 bpm LVOT SV 75.6 ml Signed 08/29/2018 10:17 AM Bo Farmer M.D. Performing Organization Address City/State/Zipcode Phone Number [facility] [address] [place] [address] ECG 12 lead (08/28/2018 7:49 PM CDT) Ventricular rate 74 [facility] MUSE Atrial rate 74 [facility] MUSE NE interval 154 [facility] MUSE QRSD interval 70 [facility]USE QT interval 402 [facility] QTC interval 446 [facility] MUSE P axis 1 52 [facility] MUSE QRS axis 1 27 [facility] MUSE T wave axis 53 [facility] MUSE EKG impression Normal sinus [facility] MUSE rhythm-Normal ECG-No previous ECGs available-Electronicall y Signed By Sheri ALY, Dean Zhou ([id number]) on 08/30/2018 9:22:26 PM Specimen Narrative Performed At Performing Organization Address City/[facility]/Zipcode Phone Number [facility] [address] [place] [address] XR Chest 2 Vw (08/28/2018 7:25 PM CDT) Specimen Narrative Performed At EXAMINATION:XR CHEST 2 VW [facility] CLINICAL HISTORY:preoperative clearance COMPARISON:None IMPRESSION: 1. The heart and pulmonary vasculature are within normal limits. 2. No infiltrate or effusion is demonstrated. 3. There is no acute osseous pathology. CONCLUSION: NO RADIOGRAPHIC EVIDENCE OF ACUTE CARDIOPULMONARY ABNORMALITY. [facility]-[id number] Procedure Note Hm Interface, Radiology Results Incoming - 08/28/2018 7:33 PM CDT EXAMINATION: XR CHEST 2 VW CLINICAL HISTORY: preoperative clearance COMPARISON: None IMPRESSION: 1. The heart and pulmonary vasculature are within normal limits. 2. No infiltrate or effusion is demonstrated. 3. There is no acute osseous pathology. CONCLUSION: NO RADIOGRAPHIC EVIDENCE OF ACUTE CARDIOPULMONARY ABNORMALITY. [facility]-[id number] Performing Organization Address City/[facility]/Zipcode Phone Number [facility] [address] [place] [address] Type and screen (08/28/2018 6:17 PM CDT) ABO grouping A [facility] Rh type POS [facility] Antibody screen (gel) NEG [facility] Specimen Blood Performing Organization Address City/[facility]/Zipcode Phone Number [facility] DEPARTMENT OF PATHOLOGY AND [address] [place] [address] GENOMIC MEDICINE [facility] [address] [place] [address] Prealbumin level (08/28/2018 5:59 PM CDT) Prealbumin 21 16 - 32 mg/dL [facility] Specimen Serum Performing Organization Address City/State/Zipcode Phone Number [facility] DEPARTMENT OF PATHOLOGY AND [address] [place] [phone] [place] [address] Carcinoembryonic antigen (CEA) (08/28/2018 5:59 PM CDT) Pathologist [facility] CEA 3.5 0.0 - 3.8 [facility] Comment: ng/mL HOSPITAL Reference range for heavy smokers:0.0 - 5.5 ng/mL The MAGGY Odalis 8000 CEA immunoassay was used. Results obtained with different assay methods or kits should not be used interchangeably and may be different. Specimen Serum Performing Organization Address City/[facility] Phone Number [facility] DEPARTMENT OF PATHOLOGY AND [address] [place] [address] Comprehensive metabolic panel (08/28/2018 5:59 PM CDT) [facility] Sodium 131 (L) 135 - 148 [facility] mEq/L [facility] Potassium 3.7 3.5 - 5.0 [facility] mEq/L [facility] Chloride 89 (L) 98 - 112 mEq/L [facility] CO2 25 24 - 31 mEq/L [facility] Anion gap 17@ANIO (H) 7 - 15 mEq/L [facility] BUN 17 8 - 23 mg/dL [facility] Creatinine 0.87 0.50 - 0.90 [facility] mg/dL [facility] Glucose 119 (H) 65 - 99 mg/dL [facility] Calcium 9.7 8.8 - 10.2 [facility] mg/dL HOSPITAL Protein 7.4 6.3 - 8.3 g/dL [facility] Comment: HOSPITAL [place] 4.6-7.0 g/dL 1 week 4.4-7.6 g/dL 7 months-1year5.1-7.3 g/dL 1-2 years5.6-7.5 g/dL >3 years6.0-8.0 g/dL 18-150 6.3-8.3 g/dL Albumin 3.7 3.5 - 5.0 g/dL [facility] A/G ratio 1.0 0.7 - 3.8 [facility] Alkaline phosphatase 51 35 - 104 U/L [facility] AST 28 10 - 35 U/L [facility] ALT 18 5 - 50 U/L [facility] Total bilirubin 0.3 0.0 - 1.2 [facility] mg/dL HOSPITAL Specimen Plasma specimen Performing Organization Address City/State/Zipcode Phone Number [facility] DEPARTMENT OF PATHOLOGY AND [address] [place] [address] GENOMIC MEDICINE [facility] [address] [place] [address] after 10/30/2017 Insurance Payer Benefit Plan / Subscriber ID Effective Dates Phone Address Type Group MEDICARE MEDICARE PART A xxxxxxxxxxx 2003-Present [place], [place] Medicare AND B Advance Directives Patient has advance care planning documents, and code status on file. For more information, please contact:[address] [address] Code Status Date Activated Date Inactivated Comments Full Code 08/28/2018 5:54 PM 08/31/2018 2:44 PM Code Status decision reached by: Patient
--- OUTSIDE RECORDS SUMMARY | 2018-10-31 07:28 | XMS REPORT ---
[...] Start Date End Date Status Dosage Zofran [facility] [id number] 4 MG Orally every August 12, Active 1 tablet 6 hours as needed 2018 for Nausea Results No Known Results Summary Purpose eClinicalWorks Submission
--- OUTSIDE RECORDS SUMMARY | 2018-10-31 07:28 | XMS REPORT ---
:1940 Author Organization eClinicalWorks Care Team Providers Name Role Phone Mik [facility] Provider Role Unavailable Allergies No Known Allergies [...]
--- OUTSIDE RECORDS SUMMARY | 2018-10-31 07:28 | XMS REPORT ---
:1940 Author Organization eClinicalWorks Care Team Providers Name Role Phone Primitivo Elena Provider Role Unavailable Allergies No Known Allergies Problems Problem Type Condition Code Onset Dates Condition Status Assessment Perianal abscess K61.0 Active Problem Benign essential HTN I10 Active [...]
--- OUTSIDE RECORDS SUMMARY | 2018-10-31 07:28 | XMS REPORT ---
:1940 Author Organization eClinicalWorks Care Team Providers Name Role Phone Mik [facility] Provider Role Unavailable Allergies No Known [...] Status Dosage System Date Date Potassium NDC [id number] 20 MEQ Orally August 01, 1 capsule Chloride Once a day 2019 Results No Known Results Summary Purpose eClinicalWorks Submission
--- OUTSIDE RECORDS SUMMARY | 2018-10-31 07:28 | XMS REPORT ---
:1940 Author Organization eClinicalWorks Care Team Providers Name Role Phone Houser, [facility] Provider Role Unavailable Allergies, Adverse Reactions, Alerts [...] End Status Dosage System Date Date Micardis [facility] 36263118642 80 MG Orally June Active 1 tablet Once a day 2018 Simvastatin [facility] 80410871224 20 MG Orally Active 1 tablet Once a day in the evening Hydrochlorothiazide [facility] 94572754929 12.5 MG Orally June Active 1 tablet Once a day , in the 2018 morning Clonidine HCl [facility] 96140984369 0.1 MG Orally Active 1 tablet Once a day at bedtime Norvasc [facility] 53514535148 5 MG Orally Active 1 tablet Once a day Aspir-81 [facility] 95947099454 81 MG Orally Active 1 tablet Once a day Vitamin C [facility] 88372530223 500 MG Orally Active not defined Ventolin HFA [facility] 87808889996 108 (90 Base) Active 2 puffs MCG/ACT as needed Inhalation every 6 hrs Unisom [facility] 98020865218 25 MG Orally Active 1 tablet Once a day at bedtime as needed Results No Known Results Summary Purpose eClinicalWorks Submission
--- OUTSIDE RECORDS SUMMARY | 2018-10-31 07:29 | XMS REPORT ---
:1940 Author Organization eClinicalWorks Care Team Providers Name Role Phone Houser, [facility] Provider Role Unavailable Allergies, Adverse Reactions, Alerts Substance Reaction Event Type Clotrimazole Diarrhea Drug Allergy Cipro Rash Drug Allergy Cephalexin Diarrhea Drug Allergy Problems Problem Type Condition Code Onset Dates Condition Status Problem Dyslipidemia E78.5 Active Problem Benign essential HTN I10 Active Problem Perineal pain in female N94.9 Active Problem Hypokalemia E87.6 Active Problem Colon adenocarcinoma C18.9 Active Problem White coat syndrome with high blood R03.0 Active pressure but without hypertension Problem Hyperlipidemia E78.5 Active Problem Colitis K52.9 Active Problem Persistent insomnia G47.00 Active Assessment Hypokalemia E87.6 Active Assessment Hyperlipidemia E78.5 Active Assessment Benign essential HTN I10 Active Assessment Colitis K52.9 Active Assessment Medicare annual wellness visit, Z00.00 Active subsequent Assessment Persistent insomnia G47.00 Active Assessment Colon adenocarcinoma C18.9 Active Medications Medication Code Code Instructions Start End Status Dosage System Date Date [facility] 28975620053 81 MG Orally Active 1 tablet Once a day Unisom [facility] 02982767569 25 MG Orally Active 1 tablet Once a day at bedtime as needed Zofran [facility] 23611036318 4 MG Orally July Active 1 tablet every 6 hours as 2018 needed for Nausea Clonidine HCl [facility] 23738458182 0.1 MG Orally Active 1 tablet Once a day at bedtime Potassium [facility] 20393240989 20 MEQ Orally July Active 1 capsule Chloride Once a day 2018 Vitamin C [facility] 65251016875 500 MG Orally Active not defined Simvastatin [facility] 67025636724 20 MG Orally Active 1 tablet Once a day in the evening Tramadol HCl [facility] 98311305018 50 MG Orally Active 1 tablet Once a day as needed Norvasc [facility] 10355308109 5 MG Orally Once Active 1 tablet a day Micardis HCT [facility] 44869631599 80-25 MG Orally Active 1 tablet Once a day Zofran [facility] 45676112385 4 MG Orally May 02, Active 1 tablet every 6 hours as 2019 needed Ventolin HFA [facility] 57509135117 108 (90 Base) Active 2 puffs as MCG/ACT needed Inhalation every 6 hrs Results No Known Results Summary Purpose eClinicalWorks Submission
--- OUTSIDE RECORDS SUMMARY | 2018-10-31 07:29 | XMS REPORT ---
:1940 Author Organization eClinicalWorks Care Team Providers Name Role Phone Primitivo Elena Provider Role Unavailable Allergies, Adverse Reactions, Alerts Substance Reaction Event Type Clotrimazole Diarrhea Drug Allergy Cipro Rash Drug Allergy Cephalexin Diarrhea Drug Allergy Problems Problem Type Condition Code Onset Dates Condition Status Problem Dyslipidemia E78.5 Active Problem Benign essential HTN I10 Active Assessment Colon adenocarcinoma C18.9 Active Problem Perineal pain in female N94.9 Active Problem Hypokalemia E87.6 Active Problem Colon adenocarcinoma C18.9 Active Problem White coat syndrome with high blood R03.0 Active pressure but without hypertension Problem Hyperlipidemia E78.5 Active Problem Colitis K52.9 Active Problem Persistent insomnia G47.00 Active Medications Medication Code Code Instructions Start End Status Dosage System Date Date Norvasc [facility] 14831501331 5 MG Orally Active 1 tablet Once a day Clonidine HCl [facility] 41694819739 0.1 MG Orally Active 1 tablet Once a day at bedtime Ventolin HFA [facility] 85178391167 108 (90 Base) Active 2 puffs MCG/ACT as needed Inhalation every 6 hrs Potassium Chloride [facility] 19578589763 20 MEQ Orally July Active 1 capsule Once a day 2018 Unisom [facility] 03659628382 25 MG Orally Active 1 tablet Once a day at bedtime as needed Micardis [facility] 42103185727 80 MG Orally June Active 1 tablet Once a day 2018 Hydrochlorothiazide [facility] 81852161580 12.5 MG Orally June Active 1 tablet Once a day , in the 2019 morning Vitamin C [facility] 32277524366 500 MG Orally Active not defined Aspir-81 [facility] 56104002324 81 MG Orally Active 1 tablet Once a day Zofran [facility] 01108721671 4 MG Orally July Active 1 tablet every 6 hours , as needed for 2019 Nausea Zofran [facility] 24838603842 4 MG Orally August 22, Active 1 tablet every 6 hours 2019 as needed Simvastatin ND 79459196596 20 MG Orally Active 1 tablet Once a day in the evening Results No Known Results Summary Purpose eClinicalWorks Submission
[2018-10-31] MEDS ORDERED: Ringers Lactate 1,000 ML IV ONE (07:55)
[2018-10-31] MEDS ORDERED: NS 0.9% VIAL 30 ML ONE (08:20)
[2018-10-31] MEDS ORDERED: HEPARIN 5000 UNIT/ML 1 ML VIAL ONE (08:21)
[2018-10-31] MEDS ORDERED: BUPIVACA 0.25%/EPI 0.0005% MDV 50 ML VIAL ONE (08:21)
[2018-10-31] MEDS ORDERED: MIDAZOLAM HCL 2 MG/2 ML INJ ONE ×2 (08:43→09:26)
[2018-10-31] MEDS ORDERED: FENTANYL CITR 100 MCG/2 ML ONE (08:55)
--- NOTE | 2018-10-31 09:32 | P.OP ---
Preoperative diagnosis: Need for Chemotherapy Postoperative diagnosis: Need for Chemotherapy Primary procedure: Placement of Chemotherapy Port Secondary procedure: Flouroscopy used Anesthesia: GETA + Local Estimated blood loss: <10cc Specimen: None Findings: Dark non-pulsatile blood noted, flouroscopy confirmed position Complications: None Implants: 8Fr power injectable port a cath Transferred to: Recovery Room Condition: Good
--- NOTE | 2018-10-31 10:03 | RAD REPORT ---
EXAM DESCRIPTION: RAD - Chest Single View - 10/31/2018 9:52 am CLINICAL HISTORY: Port-A-Cath placement COMPARISON: July 2018 TECHNIQUE: AP portable chest image was obtained 0948 hours . FINDINGS: Right-sided Port-A-Cath has been placed in good position. Tip is in the proximal SVC. Ther e is no pneumothorax. No acute lung parenchymal process. Heart and vasculature are normal. No pleural fluid. No acute bony abnormality seen. No acute aortic findings suspected. IMPRESSION: Right Port-A-Cath in good position. No pneumothorax.
--- NOTE | 2018-10-31 10:03 | RAD REPORT ---
EXAM DESCRIPTION: RAD - Fluoroscopy <1 Hour - 10/31/2018 9:45 am FINDINGS: There were 9 portable spot images obtained during a fluoroscopic assisted Port-A-Cath [facility]. Fluoro time was 0.8 minutes. No suspicious or unexpected finding.
--- NOTE | 2018-10-31 13:21 | OP ---
Date of Procedure: 10/31/2018 Surgeon: Primitivo Elena MD, Preoperative Diagnosis: Need for chemotherapy. Postoperative Diagnosis: Need for chemotherapy. Procedure Performed: Placement of a chemotherapy access port in the right subclavian position. Seco ndary procedure, fluoroscopy was used with microintroducer set. Anesthesia: General endotracheal plus local with 0.25% Marcaine with epinephrine. Estimated Blood Loss: Less than 10 cc. Specimen: None. Findings: 1.Dark red nonpulsatile blood return. 2.Fluoroscopy confirmed position. Complications: None. Implants: Eight-Amharic power injectable Port-A-Cath. Disposition: Transferred to recovery room in good condition. Procedure In Detail: After informed consent was obtained, the patient was brought to the operating r oom, prepped and draped in the usual sterile fashion. After adequate anesthesia was achieved, the pa tient was placed in steep Trendelenburg position. After appropriately anesthetizing the area under t he right collarbone, a microintroducer set was used to cannulate the right subclavian vein on the fir st attempt without evidence of complication. Dark red nonpulsatile blood was returned, the microwire was advanced. Fluoroscopy confirmed position and the needle was removed. A small florence incision was made at the insertion site and the microintroducer sheath was then placed and a wire was then placed through this area and confirmed position once again with fluoroscopy. The microintroducer sheath was removed and the wire was left in place. A tunneling device was then used to secure the end of the c atheter on the port after sizing it appropriately using fluoroscopy. A pocket was created on the melqui[address] st wall approximately 4-5 cm away from the insertion site after appropriately anesthetizing this area in the entire tract. A tunneling device was then used to pass the catheter up through the insertion site and the chest wall was cleansed to allow for securing the catheter to the prepectoral fascia. After this was performed, the introducer sheath was placed into the subclavian vein without evidence of complication and after sizing the catheter appropriately for length, the catheter was placed using fluoroscopy using the introducer sheath. The introducer sheath was removed while holding clamp on t he end of the previously flushed catheter. After sizing it appropriately using fluoroscopy, the cath eter was trimmed appropriately and the port device was placed on after placing the securing collar on to it, the securing collar was locked in place. The catheter flushed quite easily and was flushed wi th heparinized saline at this time until completely clear. The port was then secured to the chest wa ll prepectoral fascia using 2-0 Prolene sutures with good approximation of the tissues. The port was then accessed once again and flushed adequately with good easy flow and position was confirmed once again with fluoroscopy at this point. The pocket was then copiously irrigated and closed using a monica p dermal layer with 3-0 Vicryl in interrupted fashion and the skin was closed with a 4-0 Monocryl in a running fashion. Dermabond was placed over the top. The insertion site was then rinsed and cleans ed and closed with a single interrupted 3-0 nylon suture with good approximation of tissues. The pat ient was placed out of Trendelenburg position. She tolerated the procedure well without evidence of complication. Transferred to PACU in good condition. All counts were correct at the end of the case . Chest x-ray will be performed in PACU. CECY/UMER Voice ID: [id number] Report ID: [id number]
== END 2018-10-31 10:40 | disposition home or self-care (01) ==
LOC: OR 07:25
PROVIDERS: ATTEND Surgery
PROC: 0JH63WZ Insertion of Totally Implantable Vascular Access Device into Chest Subcutaneous Tissue and Fascia, Percutaneous Approach (ICD-10-PCS; principal; 2018-10-31 08:30)
DX: C21.0 Malignant neoplasm of anus, unspecified (principal); I10 Essential (primary) hypertension; E78.5 Hyperlipidemia, unspecified; G47.00 Insomnia, unspecified; H35.029 Exudative retinopathy, unspecified eye; Z85.038 Personal history of other malignant neoplasm of large intestine; Z90.49 Acquired absence of other specified parts of digestive tract; Z79.82 Long term (current) use of aspirin; Z88.1 Allergy status to other antibiotic agents; Z88.3 Allergy status to other anti-infective agents; Z88.6 Allergy status to analgesic agent
CPT/HCPCS: 71045; 36561; J1644 ×3; J2250 ×2; J3010; C1788; 76000

== ENCOUNTER 2018-11-08 13:32 | Emergency (ER) | payer OTHER ==
--- OUTSIDE RECORDS SUMMARY | 2018-11-08 13:35 | XMS REPORT | Clinical Summary ---
:1940 Author Organization [facility] Address [address] [place] [address] Care Team Providers Name Role Phone Aubrey [...] cancer (HCC) MD Tee (Primary Dx) Annie Quinones 09/02/2018 Telephone General Surgery Flako Zaragoza MA 08/29/2018 Anesthesia Event General Surgery Fernando Sierra MD 08/29/2018 Surgery General Surgery Augustine Keating CREATION, COLOSTOMY, MD Tee LAPAROSCOPIC 08/28/2018 - Hospital Encounter Cardiovascular Augustine Keating 08/31/2018 MD Tee 08/28/2018 Office Visit General Surgery Augustine Keating Rectal cancer (HCC) ( Primary Dx); MD Tee Perirectal abscess; Severe protein-calorie malnutrition (HCC); Fecal smearing after 11/07/2017 Family History Medical History Relation Name Comments [...] CDT procedure are in the results section. NV AN ELECTIVE Routine 08/29/2018 2:08 ENDOTRACHEAL AIRWAY PM CDT Procedure Note - Cesar Zimmer CRNA - 08/29/2018 2:08 PM CDT Airway Date/Time: 08/29/2018 2:08 PM Performed by: Cesar Zimmer CRNA Authorized by: Gerald Carlin II, MD Location: OR Urgency: Elective Difficult Airway: No Performed by: resident/MAINTENANCE MECHANIC ENGINE/AA Preoxygenated with 100% O2: Yes C-spine Precautions [...] 1300, REQ 1300 START PER ALLESONDRA @ [facility] Special Needs TBA- TF ~ 1300, REQ 1300 START PER ALLESONDRA @ [facility] CREATION, COLOSTOMY, 08/29/2018 1:05 PM CDT [...] SPECTRAL COLOR DOPPLER procedure are in the (06709) results section. ECG 12-LEAD STAT 08/28/2018 7:49 [...] PANEL Routine 08/28/2018 5:59 PM CDT after 11/07/2017 Results CBC with platelet and differential (08/31/2018 4:50 AM CDT)Only the most recent of4 resultswithin the time period is included. WBC 7.38 4.50 - 11.00 [facility] RBC 3.16 (L) 4.20 - 5.50 [facility] HGB 8.8 (L) 12.0 - 16.0 [facility] g/dL [facility] HCT 27.9 (L) 37.0 - 47.0 % [facility] MCV 88.3 82.0 - 100.0 [facility] MCH 27.8 27.0 - 34.0 pg [facility] MCHC 31.5 31.0 - 37.0 [facility] g/dL HOSPITAL RDW - SD 42.9 37.0 - 55.0 fL [facility] MPV 9.8 8.8 - 13.2 fL [facility] Platelet count 326 150 - 400 k/uL [facility] Nucleated RBC 0.00 /100 WBC [facility] Neutrophils 74.9 (H) 39.0 - 69.0 % [facility] Lymphocytes 14.6 (L) 25.0 - 45.0 % [facility] Monocytes 7.6 0.0 - 10.0 % [facility] Eosinophils 2.0 0.0 - 5.0 % [facility] Basophils 0.5 0.0 - 1.0 % [facility] Immature granulocytes 0.4Comment: 0.0 - 1.0 % [facility] "[facility] HOSPITAL granulocytes" (promyelocytes , myelocytes, metamyelocytes ) Specimen Blood Performing Organization Address City/State/Zipcode Phone Number [facility] DEPARTMENT OF PATHOLOGY AND [address] [place] [phone] Estimated GFR (08/31/2018 4:00 AM CDT)Only the most recent of4 resultswithin the time period is included. Estimated GFR 76 mL/min/1.73 [facility] Comment: HOSPITAL CatergoryUnitsInterpretation G1 >=90 Normal or high G2 60-89Mildly decreased X1f05-81Fsfnpe to moderately decreased H0d56-05Wjqjpqopel to severely decreased G4 15-29Severely decreased G5 <15Kidney failure The eGFR was calculated using the Chronic Kidney Disease Epidemiology Collaboration (CKD-EPI) equation. Interpretation is based on recommendations of the National Kidney Foundation-Kidney Disease Outcomes Quality Initiative (NKF-KDOQI) published in 2014. Specimen Plasma specimen Performing Organization Address City/State/Zipcode Phone Number [facility] DEPARTMENT OF PATHOLOGY AND [address] [place] [phone] [address] Basic metabolic panel (08/31/2018 4:00 AM CDT)Only the most recent of3 resultswithin the time period is included. Sodium 134 (L) 135 - 148 mEq/L [facility] Potassium 3.8 3.5 - 5.0 mEq/L [facility] Chloride 98 98 - 112 mEq/L [facility] CO2 23 (L) 24 - 31 mEq/L [facility] Anion gap 13@ANIO 7 - 15 mEq/L [facility] BUN 13 8 - 23 mg/dL [facility] Creatinine 0.74 0.50 - 0.90 mg/dL [facility] Glucose 98 65 - 99 mg/dL [facility] Calcium 8.9 8.8 - 10.2 mg/dL [facility] Specimen Plasma specimen Performing Organization Address City/State/Zipcode Phone Number [facility] DEPARTMENT OF PATHOLOGY AND [address] [place] [address] [place] [address] Echocardiogram complete w contrast and 3D if needed (08/29/2018 12:05 AM CDT) Specimen Narrative Performed At [facility] Echocardiography Report [address] [place] [address].Name:YESSENIA RAY.ID:[id number] .Date: 08/28/2018Exam Time: 9:13:00 PM Study Type:Routine EchoHeight:62.01in Weight:122.76lbBSA: 1.55 m2 DOBAge:1940,78Y Sex: FEMALE BP:137/80HR: 62 bpm Sonogrphr: Julia Zelaya. Stat.:Inpatient Room:[place] [address] Study Status:Final Echo Event ID:[id number] Order ID:[id number] Reason for Study:PRE-OP Procedures:2D Echo, Colorflow Doppler, [...] RAPof 5 mmHg. MEASUREMENTS: 2D Parasternal [place] LVIDd4.3 cmIndex2.8 cm/m LA Ds2.9 cm LVIDs2.1 cmAo Rtd 3.2 cm Index2.1 cm/m LV%fs 51.2 % LV Kqku428.7 g(87-129) IVSd 1 cmLVM Index 85.6 g/m2 [...] 08/29/2018 10:17 AM CDT Echocardiography Report [address] [place] [address] Pat.Name: YESSENIA RAY Pat.ID: [id number] St.Date: 08/28/2018 Exam Time: 9:13:00 PM Study Type:Routine Echo Height: 62.01in Weight: 122.76lb BSA: 1.55 m2 Age: 1 1940,78Y Sex: FEMALE BP: 137/80 HR: 62 bpm Sonogrphr: IMMANUEL Zelaya Pat. Stat.:Inpatient Room: [place] [address] Study Status:Final Echo Event ID:[id number] Order ID: [id number] Reason for Study:PRE-OP Procedures:2D Echo, Colorflow Doppler, [...] of 5 mmHg. MEASUREMENTS: 2D Parasternal [place] LVIDd 4.3 cm Index 2.8 cm/m LA [...] SV 75.6 ml Signed 08/29/2018 10:17 AM oB Farmer M.D. Performing Organization Address City/State/Zipcode Phone Number [facility] [address] [place] [address] ECG 12 lead (08/28/2018 7:49 PM CDT) Ventricular rate 74 [facility] MUSE Atrial rate 74 [facility] MUSE NV interval 154 [facility] MUSE QRSD interval 70 [facility]USE QT interval 402 [facility] QTC interval 446 [facility] MUSE P axis 1 52 [facility]USE QRS axis 1 27 [facility] MUSE T wave axis 53 [facility] MUSE EKG impression Normal sinus [facility] MUSE rhythm-Normal ECG-No previous ECGs available-Electronicall y Signed By Sheri ALY, Dean Zhou ([id number]) on 08/30/2018 9:22:26 PM Specimen Narrative Performed At Performing Organization Address City/[facility]/Zipcode Phone Number [facility] MUSE [address] [place] [address] XR Chest 2 Vw (08/28/2018 7:25 PM CDT) Specimen Narrative Performed At EXAMINATION:XR CHEST 2 VW [facility] CLINICAL HISTORY:preoperative clearance COMPARISON:None IMPRESSION: 1. The heart and pulmonary vasculature are within normal limits. 2. No infiltrate or effusion is demonstrated. 3. There is no acute osseous pathology. CONCLUSION: NO RADIOGRAPHIC EVIDENCE OF ACUTE CARDIOPULMONARY ABNORMALITY. [facility]-[id number] Procedure Note Hm Interface, Radiology Results Incoming - 08/28/2018 7:33 PM CDT EXAMINATION: XR CHEST 2 VW CLINICAL HISTORY: preoperative clearance COMPARISON: None IMPRESSION: 1. The heart and pulmonary vasculature are within normal limits. 2. No infiltrate or effusion is demonstrated. 3. There is no acute osseous pathology. CONCLUSION: NO RADIOGRAPHIC EVIDENCE OF ACUTE CARDIOPULMONARY ABNORMALITY. [facility]-[id number] Performing Organization Address City/[facility]/Zipcode Phone Number [facility] [address] [place] [address] Type and screen (08/28/2018 6:17 PM CDT) ABO grouping A [facility] Rh type POS [facility] Antibody screen (gel) NEG [facility] Specimen Blood Performing Organization Address City/[facility]/Zipcode Phone Number [facility] DEPARTMENT OF PATHOLOGY AND [address] [place] [address] GENOMIC MEDICINE [facility] [address] [place] [address] Prealbumin level (08/28/2018 5:59 PM CDT) Prealbumin 21 16 - 32 mg/dL [facility] Specimen Serum Performing Organization Address City/State/Zipcode Phone Number [facility] DEPARTMENT OF PATHOLOGY AND [address] [place] [id number] [place] [address] Carcinoembryonic antigen (CEA) (08/28/2018 5:59 PM CDT) Pathologist [facility] CEA 3.5 0.0 - 3.8 [facility] Comment: ng/mL HOSPITAL Reference range for heavy smokers:0.0 - 5.5 ng/mL The MAGGY Odalis 8000 CEA immunoassay was used. Results obtained with different assay methods or kits should not be used interchangeably and may be different. Specimen Serum Performing Organization Address City/[facility] Phone Number [facility] DEPARTMENT OF PATHOLOGY AND [address] [place] [address] Comprehensive metabolic panel (08/28/2018 5:59 PM CDT) [facility] Sodium 131 (L) 135 - 148 [facility] mEq/L [facility] Potassium 3.7 3.5 - 5.0 [facility] mEq/L [facility] Chloride 89 (L) 98 - 112 mEq/L [facility] CO2 25 24 - 31 mEq/L [facility] Anion gap 17@ANIO (H) 7 - 15 mEq/L [facility] BUN 17 8 - 23 mg/dL [facility] Creatinine 0.87 0.50 - 0.90 [facility] mg/dL [facility] Glucose 119 (H) 65 - 99 mg/dL [facility] Calcium 9.7 8.8 - 10.2 [facility] mg/dL HOSPITAL Protein 7.4 6.3 - 8.3 g/dL [facility] Comment: HOSPITAL [place] 4.6-7.0 g/dL 1 week 4.4-7.6 g/dL 7 months-1year5.1-7.3 g/dL 1-2 years5.6-7.5 g/dL >3 years6.0-8.0 g/dL 18-150 6.3-8.3 g/dL Albumin 3.7 3.5 - 5.0 g/dL [facility] A/G ratio 1.0 0.7 - 3.8 [facility] Alkaline phosphatase 51 35 - 104 U/L [facility] AST 28 10 - 35 U/L [facility] ALT 18 5 - 50 U/L [facility] Total bilirubin 0.3 0.0 - 1.2 [facility] mg/dL HOSPITAL Specimen Plasma specimen Performing Organization Address City/State/Zipcode Phone Number [facility] DEPARTMENT OF PATHOLOGY AND [address] [place] [address] GENOMIC MEDICINE [facility] [address] [place] [address] after 11/07/2017 Insurance Payer Benefit Plan / Subscriber ID Effective Dates Phone Address Type Group MEDICARE MEDICARE PART A xxxxxxxxxxx 2003-Present [place], [place] Medicare AND B Advance Directives Patient has advance care planning documents, and code status on file. For more information, please contact:[address] [address] Code Status Date Activated Date Inactivated Comments Full Code 08/28/2018 5:54 PM 08/31/2018 2:44 PM Code Status decision reached by: Patient
--- OUTSIDE RECORDS SUMMARY | 2018-11-08 13:35 | XMS REPORT ---
:1940 Author Organization eClinicalWorks Care Team Providers Name Role Phone Houser, [facility] Provider Role Unavailable Allergies, Adverse Reactions, [...] End Status Dosage System Date Date Micardis [facility] 21727605466 80 MG Orally June Active 1 tablet Once a day 2018 Simvastatin [facility] 83927413123 20 MG Orally Active 1 tablet Once a day in the evening Hydrochlorothiazide [facility] 12864531636 12.5 MG Orally June Active 1 tablet Once a day , in the 2018 morning Clonidine HCl [facility] 21473038675 0.1 MG Orally Active 1 tablet Once a day at bedtime Norvasc [facility] 47467661334 5 MG Orally Active 1 tablet Once a day Aspir-81 [facility] 16903072564 81 MG Orally Active 1 tablet Once a day Vitamin C [facility] 94075594160 500 MG Orally Active not defined Ventolin HFA [facility] 26235674210 108 (90 Base) Active 2 puffs MCG/ACT as needed Inhalation every 6 hrs Unisom [facility] 19395100792 25 MG Orally Active 1 tablet Once a day at bedtime as needed Results No Known Results Summary Purpose eClinicalWorks Submission
--- OUTSIDE RECORDS SUMMARY | 2018-11-08 13:35 | XMS REPORT ---
:1940 Author Organization eClinicalWorks Care Team Providers Name Role Phone Mik [facility] Provider Role Unavailable Allergies [...] Status Dosage System Date Date Potassium [facility] 39318298653 20 MEQ Orally August 01, 1 capsule Chloride Once a day 2019 Results No Known Results Summary Purpose eClinicalWorks Submission
--- OUTSIDE RECORDS SUMMARY | 2018-11-08 13:35 | XMS REPORT ---
:1940 Author Organization eClinicalWorks Care Team Providers Name Role Phone [facility] Provider Role Unavailable Allergies No Known [...]
--- OUTSIDE RECORDS SUMMARY | 2018-11-08 13:36 | XMS REPORT ---
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 Problem Persistent insomnia G47.00 Active Problem White coat syndrome with high blood R03.0 Active pressure but without hypertension Problem Hypokalemia E87.6 Active Problem Colitis K52.9 Active Medications Medication Code Code Instructions Start End Status Dosage System Date Date Norvasc [facility] 29926577440 5 MG Orally Once Active 1 tablet a day Ventolin HFA [facility] 64387871305 108 (90 Base) Active 2 puffs as MCG/ACT needed Inhalation every 6 hrs Zofran [facility] 13599175423 4 MG Orally August 22, Active 1 tablet every 6 hours as 2019 needed Potassium ND 61557332637 20 MEQ Orally July Active 1 capsule Chloride Once a day 2018 Unisom [facility] 59999765956 25 MG Orally Active 1 tablet Once a day at bedtime as needed Simvastatin ND 69603136524 20 MG Orally Active 1 tablet Once a day in the evening Vitamin C [facility] 59108238668 500 MG Orally Active not defined Tramadol HCl ND 65801059500 50 MG Orally Active 1 tablet Once a day as needed Zofran [facility] 32239925861 4 MG Orally July Active 1 tablet every 6 hours as 2018 needed for Nausea Clonidine HCl [facility] 80035122901 0.1 MG Orally Active 1 tablet Once a day at bedtime Aspir-81 [facility] 61615948971 81 MG Orally Active 1 tablet Once a day Micardis HCT [facility] 22415284045 80-25 MG Orally Active 1 tablet Once a day Results No Known Results Summary Purpose eClinicalWorks Submission
--- OUTSIDE RECORDS SUMMARY | 2018-11-08 13:36 | XMS REPORT ---
:1940 Author Organization eClinicalWorks Care Team Providers Name Role Phone Houser, [facility] Provider Role Unavailable Allergies, Adverse Reactions, [...] Start End Status Dosage System Date Date [facility] 29617569906 81 MG Orally Active 1 tablet Once a day Unisom [facility] 61707515660 25 MG Orally Active 1 tablet Once a day at bedtime as needed Zofran [facility] 47007488112 4 MG Orally July Active 1 tablet every 6 hours as 2018 needed for Nausea Clonidine HCl [facility] 27486019244 0.1 MG Orally Active 1 tablet Once a day at bedtime Potassium [facility] 21805788712 20 MEQ Orally July Active 1 capsule Chloride Once a day 2018 Vitamin C [facility] 98662802220 500 MG Orally Active not defined Simvastatin [facility] 70885745259 20 MG Orally Active 1 tablet Once a day in the evening Tramadol HCl [facility] 91217336022 50 MG Orally Active 1 tablet Once a day as needed Norvasc [facility] 75222116114 5 MG Orally Once Active 1 tablet a day Micardis HCT [facility] 81965429877 80-25 MG Orally Active 1 tablet Once a day Zofran [facility] 79254913390 4 MG Orally May 02, Active 1 tablet every 6 hours as 2019 needed Ventolin HFA [facility] 04122606840 108 (90 Base) Active 2 puffs as MCG/ACT needed Inhalation every 6 hrs Results No Known Results Summary Purpose eClinicalWorks Submission
--- OUTSIDE RECORDS SUMMARY | 2018-11-08 13:36 | XMS REPORT ---
:1940 Author Organization eClinicalWorks Care Team Providers Name Role Phone Mik [facility] Provider Role Unavailable Allergies No Known [...]
--- OUTSIDE RECORDS SUMMARY | 2018-11-08 13:36 | XMS REPORT ---
[...] Status Dosage System Date Date Ventolin HFA [facility] 74310139920 108 (90 Base) Active 2 puffs MCG/ACT as needed Inhalation every [address] [facility] 56516721988 20 MEQ Orally July Active 1 capsule Once a day [address] [facility] 46472037194 20 MG Orally Active 1 tablet Once a day in the evening Hydrochlorothiazide [facility] 54463305865 12.5 MG Orally June Active 1 tablet Once a day , in the 2018 morning Aspir-81 [facility] 38020211107 81 MG Orally Active 1 tablet Once a day Vitamin C [facility] 60159627750 500 MG Orally Active not defined Norvasc [facility] 51507042847 5 MG Orally Active 1 tablet Once a day Clonidine HCl [facility] 08740255235 0.1 MG Orally Active 1 tablet Once a day at bedtime Micardis [facility] 17914274411 80 MG Orally June Active 1 tablet Once a day [address] [facility] 17673842227 25 MG Orally Active 1 tablet Once a day at bedtime as needed Results No Known Results Summary Purpose eClinicalWorks Submission
--- OUTSIDE RECORDS SUMMARY | 2018-11-08 13:36 | XMS REPORT ---
[...] Start Date End Date Status Dosage Zofran [facility] 95817859992 4 MG Orally every August 12, Active 1 tablet 6 hours as needed 2018 for Nausea Results No Known Results Summary Purpose eClinicalWorks Submission
--- OUTSIDE RECORDS SUMMARY | 2018-11-08 13:36 | XMS REPORT ---
[...] Status Dosage System Date Date Norvasc [facility] 58348487541 5 MG Orally Active 1 tablet Once a day Clonidine HCl [facility] 52201137463 0.1 MG Orally Active 1 tablet Once a day at bedtime Ventolin HFA [facility] 32644840067 108 (90 Base) Active 2 puffs MCG/ACT as needed Inhalation every 6 hrs Potassium Chloride [facility] 20672743501 20 MEQ Orally July Active 1 capsule Once a day 2018 Unisom [facility] 39540114794 25 MG Orally Active 1 tablet Once a day at bedtime as needed Micardis [facility] 59395845598 80 MG Orally June Active 1 tablet Once a day 2018 Hydrochlorothiazide [facility] 36990281592 12.5 MG Orally June Active 1 tablet Once a day , in the 2019 morning Vitamin C [facility] 39213075293 500 MG Orally Active not defined Aspir-81 [facility] 70427457849 81 MG Orally Active 1 tablet Once a day Zofran [facility] 60598564211 4 MG Orally July Active 1 tablet every 6 hours , as needed for 2019 Nausea Zofran [facility] 17161672267 4 MG Orally August 22, Active 1 tablet every 6 hours 2019 as needed Simvastatin ND 91663622882 20 MG Orally Active 1 tablet Once a day in the evening Results No Known Results Summary Purpose eClinicalWorks Submission
--- NOTE | 2018-11-08 15:00 | ER ---
Nurse's Notes [facility] Name: Yessenia Ray Age: 78 yrs Sex: Female : 1940 Arrival Date: 11/08/2018 Time: 13:34 Bed 8 Private MD: Aubrey Houser Diagnosis: Postprocedural hemorrhage and hematoma of skin and subcutaneous tissue following a procedure Presentation: 11/08 13:37 Presenting complaint: Patient states: "the cancer center accessed my port today and it aa5 is bleeding but when i called they told me to come up here.". 13:38 Presenting complaint: Patient states: i noticed bruising around port site a day or 2 aa5 after the surgery it was done Sunday and i called Sunday and they told me it would be normal, it really isnt bleeding that much but i am concerned about the bruising, Dr. ling performed the surgery. Transition of care: patient was not received from another setting of care. Onset of symptoms was November 08, 2018. Risk Assessment: Do you want to hurt yourself or someone else? Patient reports no desire to harm self or others. Initial Sepsis Screen: Does the patient meet any 2 criteria? No. Patient's initial sepsis screen is negative. Does the patient have a suspected source of infection? No. Patient's initial sepsis screen is negative. Care prior to arrival: None. 13:38 Method Of Arrival: Ambulatory aa5 13:38 Acuity: WONG 3 aa5 13:40 Note pt reports ostomy bag to lower left abodmen. aa5 Triage Assessment: 13:41 General: Appears in no apparent distress. slender, well groomed, Behavior is calm, aa5 cooperative, appropriate for age. Pain: Denies pain. Historical: - Allergies: 14:17 Codeine; aj1 - Home Meds: 14:17 Clonidine Oral [Active]; Hydrochlorothiazide Oral [Active]; Micardis Oral [Active]; aj1 Norvasc Oral [Active]; Zocor Oral [Active]; - PMHx: 14:17 colon cancer- currently in remission; Hyperlipidemia; Hypertension; peritonitis; aj1 uterine cancer; - Immunization history:: Adult Immunizations up to date. - Social history:: The patient lives at home, Smoking status: unknown. - Ebola Screening: : No symptoms or risks identified at this time. Screenin:17 Abuse screen: Denies threats or abuse. Denies injuries from another. Nutritional aj1 screening: No deficits noted. Tuberculosis screening: No symptoms or risk factors identified. 15:32 Fall Risk None identified. rv Assessment: 14:15 General: Appears in no apparent distress. comfortable, Behavior is calm, cooperative, aj1 appropriate for age. Pain: Denies pain. Neuro: Level of Consciousness is awake, alert, obeys commands, Oriented to person, place, time, situation. Cardiovascular: Patient's skin is warm and dry. Parent/caregiver reports patient has had bleeding from her ramya-cath site to the right upper chest. She was seen by he home health nurse who did not like the way the site look so she advised the patient to come to the ER for evaluation. Bruising noted to right chest and right breast. Respiratory: Airway is patent Respiratory effort is even, unlabored, Respiratory pattern is regular, symmetrical. GI: No signs and/or symptoms were reported involving the gastrointestinal system. : No signs and/or symptoms were reported regarding the genitourinary system. EENT: No signs and/or symptoms were reported regarding the EENT system. Derm: Skin is intact, bruising noted as charted above. Musculoskeletal: No signs and/or symptoms reported regarding the musculoskeletal system. Circulation, motion, and sensation intact. Vital Signs: 13:41 BP 158 / 77; Pulse 77; Resp 17; Temp 98.4(O); Pulse Ox 99% on R/A; Weight 54.43 kg (R); aa5 Height 5 ft. 2 in. (157.48 cm); Pain 0/10; 15:31 BP 144 / 75; Pulse 71; Resp 17; Temp 98; Pulse Ox 99% on R/A; rv 13:41 Body Mass Index 21.95 (54.43 kg, 157.48 cm) aa5 ED Course: 13:34 Patient arrived in ED. rg4 13:35 Aubrey Houser DO is Private Physician. rg4 13:40 Triage completed. aa5 13:41 Arm band placed on. aa5 14:00 Cris Ding RN is Primary Nurse. aj1 14:16 Arie Rutledge MD is Attending Physician. gs 14:17 Patient has correct armband on for positive identification. aj1 14:17 No provider procedures requiring assistance completed. aj1 15:00 Report given to SONAM Mary. aj1 15:28 Wound care: located on chest and anterior aspect of right upper chest was cleaned with rv Patient tolerated well. put on 4x4 gauze with rachelle wrap. 15:32 Patient did not have IV access during this emergency room visit. rv Administered Medications: No medications were administered Outcome: 14:59 Discharge ordered by . 15:31 Discharged to home ambulatory. rv 15:31 Condition: good 15:31 Discharge instructions given to patient, Instructed on discharge instructions, follow up and referral plans. wound care, Demonstrated understanding of instructions, follow-up care, wound care. 15:32 Patient left the ED. rv Signatures: Cris Ding RN RN aj1 Brianda Lindsey RN RN aa5 Delmis Tate rg4 Arie Rutledge MD MD Sage Dawkins RN RN rv
--- NOTE | 2018-11-08 15:01 | EDPHYS ---
Physician Documentation [facility] Name: Yessenia Ray Age: 78 yrs Sex: Female : 1940 Arrival Date: 11/08/2018 Time: 13:34 Bed 8 Private MD: Aubrey Houser ED Physician Arie Rutledge HPI: 11/08 14:51 This 78 yrs old Female presents to ER via Ambulatory with complaints of gs Bleeding From Port Site. 14:51 The affected area is on the anterior aspect of right upper chest. The patient has not gs experienced similar symptoms in the past. onset about 5 days ago swelling dark bloody ooze from needle site. Historical: - Allergies: 14:17 Codeine; aj1 - Home Meds: 14:17 Clonidine Oral [Active]; Hydrochlorothiazide Oral [Active]; Micardis Oral [Active]; aj1 Norvasc Oral [Active]; Zocor Oral [Active]; - PMHx: 14:17 colon cancer- currently in remission; Hyperlipidemia; Hypertension; peritonitis; aj1 uterine cancer; - Immunization history:: Adult Immunizations up to date. - Social history:: The patient lives at home, Smoking status: unknown. - Ebola Screening: : No symptoms or risks identified at this time. ROS: 14:51 All other systems are negative. gs Exam: 14:51 Constitutional: The patient appears alert, awake. gs 14:51 Chest/axilla: Palpation: tenderness, that is mild. 14:51 Skin: Appearance: ecchymosis, noted on the, anterior aspect of right upper chest, that are moderate, over port site and r breast. milked some of blood will place pressure dressing discussed with sushil. Vital Signs: 13:41 BP 158 / 77; Pulse 77; Resp 17; Temp 98.4(O); Pulse Ox 99% on R/A; Weight 54.43 kg (R); aa5 Height 5 ft. 2 in. (157.48 cm); Pain 0/10; 15:31 BP 144 / 75; Pulse 71; Resp 17; Temp 98; Pulse Ox 99% on R/A; rv 13:41 Body Mass Index 21.95 (54.43 kg, 157.48 cm) aa5 MDM: 14:31 Patient medically screened. gs 14:51 Data reviewed: vital signs, nurses notes. Counseling: I had a detailed discussion with gs the patient and/or guardian regarding: the historical points, exam findings, and any diagnostic results supporting the discharge/admit diagnosis, the need for outpatient follow up. Physician consultation: Primitivo Elena MD regarding patient's condition. 11/08 14:43 Order name: Daniel. Order: pressure dressing; Complete Time: 15:31 gs Administered Medications: No medications were administered Disposition: 11/08/18 14:59 Discharged to Home. Impression: Postprocedural hemorrhage and hematoma of skin and subcutaneous tissue following a procedure. - Condition is Stable. - Discharge Instructions: Hematoma. - Medication Reconciliation Form, Thank You Letter, Antibiotic Education, Prescription Opioid Use form. - Follow up: Private Physician; When: 2 - 3 days; Reason: Re-evaluation by your physician. Signatures: Cris Ding RN RN aj1 Arie Rutledge MD MD gs Sage Dawkins RN RN rv Corrections: (The following items were deleted from the chart) 15:32 14:59 11/08/2018 14:59 Discharged to Home. Impression: Postprocedural hemorrhage and rv hematoma of skin and subcutaneous tissue following a procedure. Condition is Stable. Forms are Medication Reconciliation Form, Thank You Letter, Antibiotic Education, Prescription Opioid Use. Follow up: Private Physician; When: 2 - 3 days; Reason: Re-evaluation by your physician. gs
== END 2018-11-08 15:32 | disposition home or self-care (01) ==
LOC: ER 13:32
DX: L76.22 Postprocedural hemorrhage of skin and subcutaneous tissue following other procedure (principal); I10 Essential (primary) hypertension; E78.5 Hyperlipidemia, unspecified; Z85.038 Personal history of other malignant neoplasm of large intestine; Z85.42 Personal history of malignant neoplasm of other parts of uterus; Z88.5 Allergy status to narcotic agent
CPT/HCPCS: 99283

== ENCOUNTER 2018-12-04 16:13 | Emergency (ER) | payer OTHER ==
--- OUTSIDE RECORDS SUMMARY | 2018-12-04 16:16 | XMS REPORT ---
:1940 Author Organization eClinicalWorks Care Team Providers Name Role Phone Mik [facility] Provider Role Unavailable Allergies No Known Allergies [...]
--- OUTSIDE RECORDS SUMMARY | 2018-12-04 16:16 | XMS REPORT ---
:1940 Author Organization eClinicalWorks Care Team Providers Name Role Phone Mik [facility] Provider Role Unavailable Allergies No Known Allergies [...]
--- OUTSIDE RECORDS SUMMARY | 2018-12-04 16:16 | XMS REPORT ---
[...] Start Date End Date Status Dosage Zofran [facility] 46346538004 4 MG Orally every August 12, Active 1 tablet 6 hours as needed 2018 for Nausea Results No Known Results Summary Purpose eClinicalWorks Submission
--- OUTSIDE RECORDS SUMMARY | 2018-12-04 16:16 | XMS REPORT ---
[...] Date Ventolin HFA [facility] 30492292373 108 (90 Base) Active 2 puffs MCG/ACT as needed Inhalation every [address] [facility] 58552318533 20 MEQ Orally July Active 1 capsule Once a day [address] [facility] 96483554580 20 MG Orally Active 1 tablet Once a day in the evening Hydrochlorothiazide [facility] 02290815319 12.5 MG Orally June Active 1 tablet Once a day , in the 2018 morning Aspir-81 [facility] 72036464034 81 MG Orally Active 1 tablet Once a day Vitamin C [facility] 79732577507 500 MG Orally Active not defined Norvasc [facility] 82683134781 5 MG Orally Active 1 tablet Once a day Clonidine HCl [facility] 09031182315 0.1 MG Orally Active 1 tablet Once a day at bedtime Micardis [facility] 16456878316 80 MG Orally June Active 1 tablet Once a day [address] [facility] 11141694882 25 MG Orally Active 1 tablet Once a day at bedtime as needed Results No Known Results Summary Purpose eClinicalWorks Submission
--- OUTSIDE RECORDS SUMMARY | 2018-12-04 16:16 | XMS REPORT ---
:1940 Author Organization eClinicalWorks Care Team Providers Name Role Phone Mik [facility] Provider Role Unavailable Allergies No Known [...] Status Dosage System Date Date Potassium [facility] 30329877785 20 MEQ Orally August 01, 1 capsule Chloride Once a day 2019 Results No Known Results Summary Purpose eClinicalWorks Submission
--- OUTSIDE RECORDS SUMMARY | 2018-12-04 16:16 | XMS REPORT ---
:1940 Author Organization eClinicalWorks Care Team Providers Name Role Phone Houser, [facility] Provider Role Unavailable Allergies, Adverse Reactions, Alerts [...] End Status Dosage System Date Date Micardis [facility] 61637929791 80 MG Orally June Active 1 tablet Once a day 2018 Simvastatin [facility] 68883440201 20 MG Orally Active 1 tablet Once a day in the evening Hydrochlorothiazide [facility] 77451013610 12.5 MG Orally June Active 1 tablet Once a day , in the 2018 morning Clonidine HCl [facility] 41067648083 0.1 MG Orally Active 1 tablet Once a day at bedtime Norvasc [facility] 33210181663 5 MG Orally Active 1 tablet Once a day Aspir-81 [facility] 26519766171 81 MG Orally Active 1 tablet Once a day Vitamin C [facility] 84637799306 500 MG Orally Active not defined Ventolin HFA [facility] 61556888823 108 (90 Base) Active 2 puffs MCG/ACT as needed Inhalation every 6 hrs Unisom [facility] 12113528816 25 MG Orally Active 1 tablet Once a day at bedtime as needed Results No Known Results Summary Purpose eClinicalWorks Submission
--- OUTSIDE RECORDS SUMMARY | 2018-12-04 16:16 | XMS REPORT | Clinical Summary ---
:1940 Author Organization [facility] Address [address] [place] [address] Care Team Providers Name Role Phone Aubrey [...] Tee 08/28/2018 Office Visit General Surgery Augustine Keatnig Rectal cancer (HCC) ( Primary Dx); MD Tee Perirectal abscess; Severe protein-calorie malnutrition (HCC); Fecal smearing after 12/03/2017 Family History Medical History Relation Name Comments [...] CDT procedure are in the results section. MA AN ELECTIVE Routine 08/29/2018 2:08 ENDOTRACHEAL AIRWAY PM CDT Procedure Note - Cesar Zimmer CRNA - 08/29/2018 2:08 PM CDT Airway Date/Time: 08/29/2018 2:08 PM Performed by: Cesar Zimmer CRNA Authorized by: Gerald Carlin II, MD Location: OR Urgency: Elective Difficult Airway: No Performed by: resident/HYDROGEOLOGY PROFESSOR/AA Preoxygenated with 100% O2: Yes C-spine Precautions [...] 1300, REQ 1300 START PER ALLESONDRA @ [facility] Special Needs TBA- TF ~ 1300, REQ 1300 START PER ALLESONDRA @ [facility] CREATION, COLOSTOMY, 08/29/2018 1:05 PM CDT [...] SPECTRAL COLOR DOPPLER procedure are in the (86325) results section. ECG 12-LEAD STAT 08/28/2018 7:49 [...] PANEL Routine 08/28/2018 5:59 PM CDT after 12/03/2017 Results CBC with platelet and differential (08/31/2018 4:50 AM CDT)Only the most recent of4 resultswithin the time period is included. WBC 7.38 4.50 - 11.00 [facility] RBC 3.16 (L) 4.20 - 5.50 [facility] HGB 8.8 (L) 12.0 - 16.0 [facility] g/dL [facility] HCT 27.9 (L) 37.0 - 47.0 % [facility] MCV 88.3 82.0 - 100.0 [facility] MCH 27.8 27.0 - 34.0 pg [facility] MCHC 31.5 31.0 - 37.0 [facility] g/dL HOSPITAL RDW - SD 42.9 37.0 - 55.0 fL [facility] MPV 9.8 8.8 - 13.2 fL [facility] Platelet count 326 150 - 400 k/uL [facility] Nucleated RBC 0.00 /100 WBC [facility] Neutrophils 74.9 (H) 39.0 - 69.0 % [facility] Lymphocytes 14.6 (L) 25.0 - 45.0 % [facility] Monocytes 7.6 0.0 - 10.0 % [facility] Eosinophils 2.0 0.0 - 5.0 % [facility] Basophils 0.5 0.0 - 1.0 % [facility] Immature granulocytes 0.4Comment: 0.0 - 1.0 % [facility] "[facility] HOSPITAL granulocytes" (promyelocytes , myelocytes, metamyelocytes ) Specimen Blood Performing Organization Address City/State/Zipcode Phone Number [facility] DEPARTMENT OF PATHOLOGY AND [address] [place] [address] Estimated GFR (08/31/2018 4:00 AM CDT)Only the most recent of4 resultswithin the time period is included. Estimated GFR 76 mL/min/1.73 [facility] Comment: HOSPITAL CatergoryUnitsInterpretation G1 >=90 Normal or high G2 60-89Mildly decreased Q5j76-53Dsvopd to moderately decreased Y7j13-72Gllzknmgws to severely decreased G4 15-29Severely decreased G5 <15Kidney failure The eGFR was calculated using the Chronic Kidney Disease Epidemiology Collaboration (CKD-EPI) equation. Interpretation is based on recommendations of the National Kidney Foundation-Kidney Disease Outcomes Quality Initiative (NKF-KDOQI) published in 2014. Specimen Plasma specimen Performing Organization Address City/State/Zipcode Phone Number [facility] DEPARTMENT OF PATHOLOGY AND [address] [place] [phone] [address] Basic metabolic panel (08/31/2018 4:00 AM CDT)Only the most recent of3 resultswithin the time period is included. Sodium 134 (L) 135 - 148 mEq/L [facility] Potassium 3.8 3.5 - 5.0 mEq/L [facility] Chloride 98 98 - 112 mEq/L [facility] CO2 23 (L) 24 - 31 mEq/L [facility] Anion gap 13@ANIO 7 - 15 mEq/L [facility] BUN 13 8 - 23 mg/dL [facility] Creatinine 0.74 0.50 - 0.90 mg/dL [facility] Glucose 98 65 - 99 mg/dL [facility] Calcium 8.9 8.8 - 10.2 mg/dL [facility] Specimen Plasma specimen Performing Organization Address City/State/Zipcode Phone Number [facility] DEPARTMENT OF PATHOLOGY AND [address] [place] [address] [place] [address] Echocardiogram complete w contrast and 3D if needed (08/29/2018 12:05 AM CDT) Specimen Narrative Performed At [facility] Echocardiography Report [address] [place] [address].Name:YESSENIA RAY.ID:[id number] .Date: 08/28/2018Exam Time: 9:13:00 PM Study Type:Routine EchoHeight:62.01in Weight:122.76lbBSA: 1.55 m2 DOBAge:1940,78Y Sex: FEMALE BP:137/80HR: 62 bpm Sonogrphr: Julia Zelaya. Stat.:Inpatient Room:[place] [address] Study Status:Final Echo Event ID:[id number] Order ID:[id number] Reason for Study:PRE-OP Procedures:2D Echo, Colorflow Doppler, [...] RAPof 5 mmHg. MEASUREMENTS: 2D Parasternal [place] LVIDd4.3 cmIndex2.8 cm/m LA Ds2.9 cm LVIDs2.1 cmAo Rtd 3.2 cm Index2.1 cm/m LV%fs 51.2 % LV Ivlh742.7 g(87-129) IVSd 1 cmLVM Index 85.6 g/m2 [...] 08/29/2018 10:17 AM CDT Echocardiography Report [address] [place] [address] Pat.Name: YESSENIA RAY Pat.ID: [id number] St.Date: 08/28/2018 Exam Time: 9:13:00 PM Study Type:Routine Echo Height: 62.01in Weight: 122.76lb BSA: 1.55 m2 Age: 1 1940,78Y Sex: FEMALE BP: 137/80 HR: 62 bpm Sonogrphr: IMMANUEL Zelaya Pat. Stat.:Inpatient Room: [place] [address] Study Status:Final Echo Event ID:[id number] Order ID: [id number] Reason for Study:PRE-OP Procedures:2D Echo, Colorflow Doppler, [...] of 5 mmHg. MEASUREMENTS: 2D Parasternal [place] LVIDd 4.3 cm Index 2.8 cm/m LA [...] Organization Address City/State/Zipcode Phone Number [facility] [address] [place] [address] ECG 12 lead (08/28/2018 7:49 PM CDT) Ventricular rate 74 [facility] MUSE Atrial rate 74 [facility] MUSE MA interval 154 [facility] MUSE QRSD interval 70 [facility] MUSE QT interval 402 [facility] QTC interval 446 [facility] MUSE P axis 1 52 [facility] MUSE QRS axis 1 27 [facility] MUSE T wave axis 53 [facility] MUSE EKG impression Normal sinus [facility] MUSE rhythm-Normal ECG-No previous ECGs available-Electronicall y Signed By Sheri ALY, Dean Zhou ([id number]) on 08/30/2018 9:22:26 PM Specimen Narrative Performed At Performing Organization Address City/[facility]/Zipcode Phone Number [facility] MUSE [address] [place] [address] XR Chest 2 Vw (08/28/2018 7:25 PM CDT) Specimen Narrative Performed At EXAMINATION:XR CHEST 2 VW [facility] CLINICAL HISTORY:preoperative clearance COMPARISON:None IMPRESSION: 1. The heart and pulmonary vasculature are within normal limits. 2. No infiltrate or effusion is demonstrated. 3. There is no acute osseous pathology. CONCLUSION: NO RADIOGRAPHIC EVIDENCE OF ACUTE CARDIOPULMONARY ABNORMALITY. [facility]-[id number] Procedure Note Hm Interface, Radiology Results Incoming - 08/28/2018 7:33 PM CDT EXAMINATION: XR CHEST 2 VW CLINICAL HISTORY: preoperative clearance COMPARISON: None IMPRESSION: 1. The heart and pulmonary vasculature are within normal limits. 2. No infiltrate or effusion is demonstrated. 3. There is no acute osseous pathology. CONCLUSION: NO RADIOGRAPHIC EVIDENCE OF ACUTE CARDIOPULMONARY ABNORMALITY. [facility]-[id number] Performing Organization Address City/[facility]/Zipcode Phone Number [facility] [address] [place] [address] Type and screen (08/28/2018 6:17 PM CDT) ABO grouping A [facility] Rh type POS [facility] Antibody screen (gel) NEG [facility] Specimen Blood Performing Organization Address City/[facility]/Zipcode Phone Number [facility] DEPARTMENT OF PATHOLOGY AND [address] [place] [address] GENOMIC MEDICINE [facility] [address] [place] [address] Prealbumin level (08/28/2018 5:59 PM CDT) Prealbumin 21 16 - 32 mg/dL [facility] Specimen Serum Performing Organization Address City/State/Zipcode Phone Number [facility] DEPARTMENT OF PATHOLOGY AND [address] [place] [phone] [place] [phone] Carcinoembryonic antigen (CEA) (08/28/2018 5:59 PM CDT) Pathologist [facility] CEA 3.5 0.0 - 3.8 [facility] Comment: ng/mL HOSPITAL Reference range for heavy smokers:0.0 - 5.5 ng/mL The MAGGY Odalis 8000 CEA immunoassay was used. Results obtained with different assay methods or kits should not be used interchangeably and may be different. Specimen Serum Performing Organization Address City/[facility] Phone Number [facility] DEPARTMENT OF PATHOLOGY AND [address] [place] [address] Comprehensive metabolic panel (08/28/2018 5:59 PM CDT) [facility] Sodium 131 (L) 135 - 148 [facility] mEq/L [facility] Potassium 3.7 3.5 - 5.0 [facility] mEq/L [facility] Chloride 89 (L) 98 - 112 mEq/L [facility] CO2 25 24 - 31 mEq/L [facility] Anion gap 17@ANIO (H) 7 - 15 mEq/L [facility] BUN 17 8 - 23 mg/dL [facility] Creatinine 0.87 0.50 - 0.90 [facility] mg/dL [facility] Glucose 119 (H) 65 - 99 mg/dL [facility] Calcium 9.7 8.8 - 10.2 [facility] mg/dL HOSPITAL Protein 7.4 6.3 - 8.3 g/dL [facility] Comment: HOSPITAL [place] 4.6-7.0 g/dL 1 week 4.4-7.6 g/dL 7 months-1year5.1-7.3 g/dL 1-2 years5.6-7.5 g/dL >3 years6.0-8.0 g/dL 18-150 6.3-8.3 g/dL Albumin 3.7 3.5 - 5.0 g/dL [facility] A/G ratio 1.0 0.7 - 3.8 [facility] Alkaline phosphatase 51 35 - 104 U/L [facility] AST 28 10 - 35 U/L [facility] ALT 18 5 - 50 U/L [facility] Total bilirubin 0.3 0.0 - 1.2 [facility] mg/dL HOSPITAL Specimen Plasma specimen Performing Organization Address City/State/Zipcode Phone Number [facility] DEPARTMENT OF PATHOLOGY AND [address] [place] [address] GENOMIC MEDICINE [facility] [address] [place] [address] after 12/03/2017 Insurance Payer Benefit Plan / Subscriber ID Effective Dates Phone Address Type Group MEDICARE MEDICARE PART A xxxxxxxxxxx 2003-Present [place], [place] Medicare [place] B Advance Directives Patient has advance care planning documents, and code status on file. For more information, please contact:[address] [address] Code Status Date Activated Date Inactivated Comments Full Code 08/28/2018 5:54 PM 08/31/2018 2:44 PM Code Status decision reached by: Patient
--- OUTSIDE RECORDS SUMMARY | 2018-12-04 16:17 | XMS REPORT ---
:1940 Author Organization [employer] Care Team Providers Name Role Phone Houser, [facility] Provider Role Unavailable Allergies, Adverse Reactions, [...] Start End Status Dosage System Date Date [facility] 13601132888 81 MG Orally Active 1 tablet Once a day Unisom [facility] 45484137425 25 MG Orally Active 1 tablet Once a day at bedtime as needed Zofran [facility] 91235818135 4 MG Orally July Active 1 tablet every 6 hours as 2018 needed for Nausea Clonidine HCl [facility] 77440309594 0.1 MG Orally Active 1 tablet Once a day at bedtime Potassium [facility] 39500516238 20 MEQ Orally July Active 1 capsule Chloride Once a day 2018 Vitamin C [facility] 76237178754 500 MG Orally Active not defined Simvastatin [facility] 86227057450 20 MG Orally Active 1 tablet Once a day in the evening Tramadol HCl [facility] 25040488911 50 MG Orally Active 1 tablet Once a day as needed Norvasc [facility] 20008235232 5 MG Orally Once Active 1 tablet a day Micardis HCT [facility] 52966637540 80-25 MG Orally Active 1 tablet Once a day Zofran [facility] 71445052439 4 MG Orally May 02, Active 1 tablet every 6 hours as 2019 needed Ventolin HFA [facility] 48887863227 108 (90 Base) Active 2 puffs as MCG/ACT needed Inhalation every 6 hrs Results No Known Results Summary Purpose eClinicalWorks Submission
--- OUTSIDE RECORDS SUMMARY | 2018-12-04 16:17 | XMS REPORT ---
[...] End Status Dosage System Date Date Norvasc [facility] 89860560005 5 MG Orally Once Active 1 tablet a day Ventolin HFA [facility] 05020906205 108 (90 Base) Active 2 puffs as MCG/ACT needed Inhalation every 6 hrs Zofran [facility] 86252773704 4 MG Orally August 22, Active 1 tablet every 6 hours as 2019 needed Potassium ND 89108670508 20 MEQ Orally July Active 1 capsule Chloride Once a day 2018 Unisom [facility] 20301088104 25 MG Orally Active 1 tablet Once a day at bedtime as needed Simvastatin ND 91463202980 20 MG Orally Active 1 tablet Once a day in the evening Vitamin C [facility] 07112740584 500 MG Orally Active not defined Tramadol HCl ND 20998027826 50 MG Orally Active 1 tablet Once a day as needed Zofran [facility] 31854793693 4 MG Orally July Active 1 tablet every 6 hours as 2018 needed for Nausea Clonidine HCl [facility] 17980642701 0.1 MG Orally Active 1 tablet Once a day at bedtime Aspir-81 [facility] 51641024014 81 MG Orally Active 1 tablet Once a day Micardis HCT [facility] 04967516268 80-25 MG Orally Active 1 tablet Once a day Results No Known Results Summary Purpose eClinicalWorks Submission
--- OUTSIDE RECORDS SUMMARY | 2018-12-04 16:17 | XMS REPORT ---
[...] End Status Dosage System Date Date Norvasc [facility] 72207817595 5 MG Orally Active 1 tablet Once a day Clonidine HCl [facility] 60786260693 0.1 MG Orally Active 1 tablet Once a day at bedtime Ventolin HFA [facility] 98511705712 108 (90 Base) Active 2 puffs MCG/ACT as needed Inhalation every 6 hrs Potassium Chloride [facility] 01376733062 20 MEQ Orally July Active 1 capsule Once a day 2018 Unisom [facility] 86074465400 25 MG Orally Active 1 tablet Once a day at bedtime as needed Micardis [facility] 67572054741 80 MG Orally June Active 1 tablet Once a day 2018 Hydrochlorothiazide [facility] 10453739060 12.5 MG Orally June Active 1 tablet Once a day , in the 2019 morning Vitamin C [facility] 39212228242 500 MG Orally Active not defined Aspir-81 [facility] 61140151273 81 MG Orally Active 1 tablet Once a day Zofran [facility] 18107679965 4 MG Orally July Active 1 tablet every 6 hours , as needed for 2019 Nausea Zofran [facility] 05683316945 4 MG Orally August 22, Active 1 tablet every 6 hours 2019 as needed Simvastatin ND 80883739409 20 MG Orally Active 1 tablet Once a day in the evening Results No Known Results Summary Purpose eClinicalWorks Submission
[2018-12-04 16:55] LABS: Urine Blood 1+ (NEG); Urine Glucose NEGATIVE (NEG); Urine Protein NEGATIVE (NEG); Urine Specific Gravity 1.015 (1.005-1.030); Urine pH 8.5 (5.0-7.0)
[2018-12-04 17:22] LABS: Absolute Lymphocytes (CBC) 0.1 K/uL (0.7-4.9); Basophils % 0.2 % (0-1.3); Hematocrit 28.1 % (36.0-45.0); MPV 7.4 fL (7.6-11.3); RBC Red Blood Cell Count 3.35 M/uL (3.86-4.86)
[2018-12-04 17:28] LABS: Urine Bacteria >50 /HPF (<20); Urine Culture Reflex Order NOT NEEDED; Urine RBC <5 /HPF (NONE SEEN)
[2018-12-04] MEDS ORDERED: LIDOCAINE VISCOUS 2% SOLN 15 ML UDC ONE (17:31)
[2018-12-04] MEDS ORDERED: DIPHENHYDRAMINE 50 MG/ML VIAL ONE (17:31)
[2018-12-04 17:39] LABS: Potassium 3.5 mmol/L (3.5-5.1)
[2018-12-04 17:53] LABS: Blood Morphology Comment NOT SEEN (NOT SEEN); Platelet Estimate ADEQ; Urine White Blood Cell Casts OK
[2018-12-04] MEDS ORDERED: CEFTRIAXONE/SWI 1gm 1 GM/10 ML SYR ONE (18:23)
--- NOTE | 2018-12-04 18:40 | ER ---
Nurse's Notes [facility] Name: Yessenia Ray Age: 78 yrs Sex: Female : 1940 Arrival Date: 12/04/2018 Time: 16:14 Bed 13 Private MD: Diagnosis: Radiation burn - anal pain;Urinary tract infection, site not specified Presentation: 12/04 16:25 Presenting complaint: Patient states: "I am taking chemo and radiation for rectal aa5 cancer and today when I went for my radiation I almost passed out and Dr. Carver said to come here". Pt also c/o rectal pain. Pt states "I was running a fever of 99 at the cancer center". 16:25 Transition of care: patient was not received from another setting of care. Onset of aa5 symptoms was December 04, 2018. Risk Assessment: Do you want to hurt yourself or someone else? Patient reports no desire to harm self or others. Care prior to arrival: None. 16:25 Acuity: WONG 2 aa5 16:25 Method Of Arrival: Ambulatory aa5 18:37 Initial Sepsis Screen: Does the patient meet any 2 criteria? No. Patient's initial mg2 sepsis screen is negative. Does the patient have a suspected source of infection? No. Patient's initial sepsis screen is negative. Historical: - Allergies: 16:26 No Known Allergies; aa5 - Home Meds: 18:39 Clonidine Oral [Active]; Hydrochlorothiazide Oral [Active]; Micardis Oral [Active]; mg2 Norvasc Oral [Active]; Zocor Oral [Active]; - PMHx: 16:26 Hyperlipidemia; Hypertension; peritonitis; uterine cancer; Rectal Cancer- current aa5 chemotherapy and radiation; - PSHx: 16:26 Colonostomy; aa5 - Immunization history:: Flu vaccine status is unknown. - Ebola Screening: : No symptoms or risks identified at this time. - Social history:: Smoking status: unknown. Screenin:36 Abuse screen: Denies threats or abuse. Denies injuries from another. Nutritional mg2 screening: No deficits noted. Tuberculosis screening: No symptoms or risk factors identified. Fall Risk IV access (20 points). Assessment: 18:35 General: Appears in no apparent distress. comfortable, Behavior is calm, cooperative. mg2 Pain: Complains of pain in rectal area Pain does not radiate. Pain currently is 5 out of 10 on a pain scale. Quality of pain is described as aching, Pain began gradually. Neuro: Level of Consciousness is awake, alert, obeys commands, Oriented to person, place, time, situation. Cardiovascular: Capillary refill < 3 seconds Patient's skin is warm and dry. Respiratory: Airway is patent Respiratory effort is even, unlabored, Respiratory pattern is regular, symmetrical. GI: Reports nausea, rectal pain. : pls see urine dip. EENT: No signs and/or symptoms were reported regarding the EENT system. Derm: Skin is intact, is healthy with good turgor, Skin is pink, warm \\T\\ dry. normal. Musculoskeletal: Circulation, motion, and sensation intact. Capillary refill < 3 seconds. Vital Signs: 16:26 BP 176 / 65; Pulse 91; Resp 18 S; Temp 98.6(O); Pulse Ox 98% on R/A; aa5 18:00 BP 143 / 53; Pulse 77; Resp 18; Pulse Ox 100% on R/A; mg2 18:34 BP 133 / 61; Pulse 83; Resp 18; Temp 98.2; Pulse Ox 100% on R/A; mg2 ED Course: 16:14 Patient arrived in ED. as 16:28 Arm band placed on Patient placed in an exam room, on a stretcher. aa5 16:29 Becca Cisneros [facility]-C [facility] snw 16:29 Christian Ellsworth MD is Attending Physician. snw 16:31 Triage completed. aa5 16:42 Aquiles Kenny, SONAM is Primary Nurse. mg2 16:47 EKG done, by service tech. reviewed by Becca GONZALEZ. sm3 18:00 No provider procedures requiring assistance completed. Inserted saline lock: 20 gauge mg2 in right antecubital area, using aseptic technique. Blood collected. 18:37 Patient has correct armband on for positive identification. Pulse ox on. NIBP on. Door mg2 closed. Warm blanket given. 18:51 IV discontinued, intact, bleeding controlled, No redness/swelling at site. Pressure mg2 dressing applied. Administered Medications: 17:59 Drug: Benadryl 12.5 mg Route: IVP; Site: right antecubital; mg2 18:50 Follow up: Response: No adverse reaction; Marked relief of symptoms mg2 17:59 Not Given (Patient Refused): Lidocaine Gel 2 % 1 ea 15 ml Mucous Membrane once; anal mg2 area 18:34 Drug: Rocephin 1 grams Route: IV; Rate: calculated rate; Site: right antecubital; mg2 18:49 Follow up: Response: No adverse reaction; IV Status: Completed infusion mg2 Point of Care Testing: Blood Glucose: 18:00 Blood Glucose: 116 mg/dL; mg2 Ranges: Outcome: 18:39 Discharge ordered by MD. mendez 18:51 Discharged to home ambulatory, with family. mg2 18:51 Condition: stable 18:51 Discharge instructions given to patient, family, Instructed on discharge instructions, follow up and referral plans. medication usage, Demonstrated understanding of instructions, follow-up care, medications, Prescriptions given X 1. 18:52 Patient left the ED. mg2 Signatures: Becca Cisneros, RN COMPLEX CARE-C RN COMPLEX CARE-Csnw Diana Rivers Audri, RN RN aa5 Aquiles Kenny RN RN mg2 Romy Hernandez sm3 Corrections: (The following items were deleted from the chart) 18:51 18:34 BP 133 / 61; Pulse 83bpm; Resp 18bpm; Pulse Ox 100% RA; mg2 mg2
--- NOTE | 2018-12-04 18:41 | EDPHYS ---
Physician Documentation [facility] Name: Yessenia Ray Age: 78 yrs Sex: Female : 1940 Arrival Date: 12/04/2018 Time: 16:14 Bed 13 Private MD: ED Physician Christian Ellsworth HPI: 12/04 16:54 This 78 yrs old Female presents to ER via Ambulatory with complaints of snw Fever, Rectal Pain. 16:54 Onset: The symptoms/episode began/occurred acutely. Associated signs and symptoms: snw Pertinent positives: burning raw pain to area of radiation burn. Modifying factors: The patient symptoms are alleviated by nothing. The patient reports fever, not measured (subjective). Associated signs and symptoms: Pertinent positives: at Cancer center and felt as if she was going to pass out. Severity of symptoms: At their worst the symptoms were moderate severe in the emergency department the symptoms are unchanged. It is unknown whether or not the patient has had similar symptoms in the past. Dr. Carver just prior to arrival. Historical: - Allergies: 16:26 No Known Allergies; aa5 - Home Meds: 18:39 Clonidine Oral [Active]; Hydrochlorothiazide Oral [Active]; Micardis Oral [Active]; mg2 Norvasc Oral [Active]; Zocor Oral [Active]; - PMHx: 16:26 Hyperlipidemia; Hypertension; peritonitis; uterine cancer; Rectal Cancer- current aa5 chemotherapy and radiation; - PSHx: 16:26 Colonostomy; aa5 - Immunization history:: Flu vaccine status is unknown. - Ebola Screening: : No symptoms or risks identified at this time. - Social history:: Smoking status: unknown. ROS: 16:53 Eyes: Negative for injury, pain, redness, and discharge, ENT: Negative for injury, snw pain, and discharge, Neck: Negative for injury, pain, and swelling, Cardiovascular: Negative for chest pain, palpitations, and edema, Respiratory: Negative for shortness of breath, cough, wheezing, and pleuritic chest pain, Abdomen/GI: Negative for abdominal pain, nausea, vomiting, diarrhea, and constipation, Back: Negative for injury and pain, : Negative for injury, bleeding, discharge, and swelling, MS/Extremity: Negative for injury and deformity, Neuro: Negative for headache, weakness, numbness, tingling, and seizure, Psych: Negative for depression, anxiety, suicide ideation, homicidal ideation, and hallucinations. 16:53 Constitutional: Positive for body aches, chills, fever, malaise. 16:53 Skin: Positive for burn, of the area of radiation for rectal ca. Exam: 16:53 Constitutional: This is a well developed, well nourished patient who is awake, alert, snw and in no acute distress. Head/Face: Normocephalic, atraumatic. Eyes: Pupils equal round and reactive to light, extra-ocular motions intact. Lids and lashes normal. Conjunctiva and sclera are non-icteric and not injected. Cornea within normal limits. Periorbital areas with no swelling, redness, or edema. ENT: Nares patent. No nasal discharge, no septal abnormalities noted. Tympanic membranes are normal and external auditory canals are clear. Oropharynx with no redness, swelling, or masses, exudates, or evidence of obstruction, uvula midline. Mucous membranes moist. Neck: Trachea midline, no thyromegaly or masses palpated, and no cervical lymphadenopathy. Supple, full range of motion without nuchal rigidity, or vertebral point tenderness. No Meningismus. Chest/axilla: Normal chest wall appearance and motion. Nontender with no deformity. No lesions are appreciated. Cardiovascular: Regular rate and rhythm with a normal S1 and S2. No gallops, murmurs, or rubs. Normal PMI, no JVD. No pulse deficits. 16:53 Abdomen/GI: Soft, non-tender, with normal bowel sounds. No distension or tympany. No guarding or rebound. No evidence of tenderness throughout. Back: No spinal tenderness. No costovertebral tenderness. Full range of motion. Skin: Warm, dry with normal turgor. Normal color with no rashes, no lesions, and no evidence of cellulitis. MS/ Extremity: Pulses equal, no cyanosis. Neurovascular intact. Full, normal range of motion. Neuro: Awake and alert, GCS 15, oriented to person, place, time, and situation. Cranial nerves II-XII grossly intact. Motor strength 5/5 in all extremities. Sensory grossly intact. Cerebellar exam normal. Normal gait. 16:53 ECG was reviewed by the Attending Physician. 16:53 Respiratory: moderate respiratory distress is noted, Respirations: shallow respirations, tachypnea, Breath sounds: are clear throughout. Vital Signs: 16:26 BP 176 / 65; Pulse 91; Resp 18 S; Temp 98.6(O); Pulse Ox 98% on R/A; aa5 18:00 BP 143 / 53; Pulse 77; Resp 18; Pulse Ox 100% on R/A; mg2 18:34 BP 133 / 61; Pulse 83; Resp 18; Temp 98.2; Pulse Ox 100% on R/A; mg2 MDM: 16:29 Patient medically screened. snw 18:41 Data reviewed: vital signs, nurses notes. Data interpreted: Pulse oximetry: on room air snw is 100 %. Interpretation: normal. Counseling: I had a detailed discussion with the patient and/or guardian regarding: the historical points, exam findings, and any diagnostic results supporting the discharge/admit diagnosis, lab results, the need for outpatient follow up, to return to the emergency department if symptoms worsen or persist or if there are any questions or concerns that arise at home. Response to treatment: the patient's symptoms have markedly improved after treatment. Special discussion: Based on the history and exam findings, there is no indication for further emergent testing or inpatient evaluation. 12/04 16:50 Order name: Urine Dipstick--Ancillary (enter results); Complete Time: 16:59 bd 12/04 16:52 Order name: Urine Culture formerly [facility], [facility] 12/04 16:52 Order name: Urine Microscopic Only; Complete Time: 18:09 snw 12/04 16:52 Order name: CBC with Diff; Complete Time: 18:09 w 12/04 16:52 Order name: Chem 7; Complete Time: 18:09 w 12/04 16:52 Order name: Blood Culture Adult (2) formerly [facility], [facility] 12/04 16:52 Order name: CPK; Complete Time: 18:09 w 12/04 16:52 Order name: EKG; Complete Time: 16:53 formerly [facility], [facility] 12/04 16:52 Order name: EKG - Nurse/Tech; Complete Time: 16:54 formerly [facility], [facility] 12/04 17:29 Order name: CBC Smear Scan; Complete Time: 18:09 EDMS Administered Medications: 17:59 Drug: Benadryl 12.5 mg Route: IVP; Site: right antecubital; mg2 18:50 Follow up: Response: No adverse reaction; Marked relief of symptoms mg2 17:59 Not Given (Patient Refused): Lidocaine Gel 2 % 1 ea 15 ml Mucous Membrane once; anal mg2 area 18:34 Drug: Rocephin 1 grams Route: IV; Rate: calculated rate; Site: right antecubital; mg2 18:49 Follow up: Response: No adverse reaction; IV Status: Completed infusion mg2 Point of Care Testing: Blood Glucose: 18:00 Blood Glucose: 116 mg/dL; mg2 Ranges: Critical Glucose Levels:Adult <50 mg/dl or >400 mg/dl <40 mg/dl or >180 mg/dl Disposition: 12/04/18 18:39 Discharged to Home. Impression: Radiation burn - anal pain, Urinary tract infection, site not specified. - Condition is Stable. - Discharge Instructions: Burn Care, Adult, Urinary Tract Infection, Adult. - Prescriptions for Macrobid 100 mg Oral Capsule - take 1 capsule by ORAL route every 12 hours for 10 days; 20 capsule. - Medication Reconciliation Form, Thank You Letter, Antibiotic Education, Prescription Opioid Use form. - Follow up: Private Physician; When: 1 - 2 days; Reason: Recheck today's complaints, Continuance of care, Re-evaluation by your physician. Follow up: Emergency Department; When: As needed; Reason: Worsening of condition. Signatures: Dispatcher [employer] [facility] Becca Cisneros FNP-C JIGSAWYER[facility] Brianda Lindsey, RN RN aa5 Aquiles Kenny RN RN mg2 Corrections: (The following items were deleted from the chart) 18:52 18:39 12/04/2018 18:39 Discharged to Home. Impression: Radiation burn - anal pain; mg2 Urinary tract infection, site not specified. Condition is Stable. Forms are Medication Reconciliation Form, Thank You Letter, Antibiotic Education, Prescription Opioid Use. Follow up: Private Physician; When: 1 - 2 days; Reason: Recheck today's complaints, Continuance of care, Re-evaluation by your physician. Follow up: Emergency Department; When: As needed; Reason: Worsening of condition. snw
--- NOTE | 2018-12-05 11:38 | EKG ---
Test Date: 2018-12-04 Test Time: 16:43:53 [employer] Test Program Manager: LISBETH MEASUREMENT RESULTS: Intervals: Rate: 89 MD: 138 QRSD: 78 QT: 374 QTc: 455 [place]: P: 56 MD: 138 QRS: 55 T: 67 INTERPRETIVE STATEMENTS: Normal sinus rhythm Normal ECG Compared to ECG 07/31/2018 01:48:10 T-wave abnormality no longer present Electronically Signed On 12-05-18 11:35:02 CDT by Devante Meng
== END 2018-12-04 18:52 | disposition home or self-care (01) ==
LOC: ER 16:13
DX: C18.9 Malignant neoplasm of colon, unspecified (principal); N39.0 Urinary tract infection, site not specified; T21.05XA Burn of unspecified degree of buttock, initial encounter; I10 Essential (primary) hypertension; E78.5 Hyperlipidemia, unspecified; Z85.42 Personal history of malignant neoplasm of other parts of uterus
CPT/HCPCS: 93005; 87040 ×2; 87088; 85025; 87086; 80048; 36415; 82550; J0696; 81003; 81015; 82962